=== PATIENT | male | born 1945 | race Caucasian/White ===

== ENCOUNTER 2017-07-19 14:17 | Inpatient (IN) | payer OTHER ==
[2017-07-19 14:21] VITALS: BMI 29.1
[2017-07-19] MEDS ORDERED: PIPERACIL/TAZOB 3.375 GM 3.375 GM/50 ML PREMIX IVPB ONE (17:55)
[2017-07-19] MEDS ORDERED: VANCOMYCIN 1,000 MG in DEXTROSE 5%-WATER - 250 ML IVPB ONE ×2 (17:55→19:30)
[2017-07-19 18:14] LABS: BASO % 0.1 % (0-2.0); EOS % 0.1 % (0-4.5); HEMATOCRIT 42.7 % (35.4-49); HEMOGLOBIN 13.9 GM/dL (11.7-16.9); LYMPH % 6.4 % (8-40); MCH 23.2 pg (25.7-33.7); MCHC 32.5 g/dl (32.0-35.9); MEAN CELL VOLUME 71.3 fl (80-96); MEAN PLT VOLUME 9.2 fl (7.5-11.1); MONO % 3.1 % (3.8-10.2); NEUT % 90.3 % (42.8-82.8); PLATELET COUNT 247 K/MM3 (134-434); RDW 22.9 % (11.9-15.9); WHITE BLOOD COUNT 17.1 K/mm3 (4.0-10.0)
[2017-07-19 18:23] LABS: ADD RBC MORPHOLOGY YES
[2017-07-19 18:25] LABS: INR 1.53 (0.82-1.09); PROTHROMBIN TIME (PATIENT) 17.3 SEC (9.98-11.88)
[2017-07-19 18:40] LABS: ALBUMIN 4.2 g/dl (3.4-5.0); ANION GAP 11 (8-16); BILIRUBIN,TOTAL 0.8 mg/dL (0.2-1.0); BLOOD UREA NITROGEN 22 mg/dL (7-18); CALCIUM 9.3 mg/dL (8.5-10.1); CHLORIDE 95 mmol/L (98-107); CO2 29 mmol/L (21-32); CREATININE 1.1 mg/dL (0.7-1.3); GLUCOSE,RANDOM 132 mg/dL (74-106); POTASSIUM 4.1 mmol/L (3.5-5.1); SGOT/AST 13 U/L (15-37); SGPT/ALT 18 U/L (12-78); SODIUM 135 mmol/L (136-145); TOT PROT 7.9 g/dl (6.4-8.2)
[2017-07-19 18:41] LABS: ALK PHOS 102 U/L (45-117)
[2017-07-19] MEDS ORDERED: VANCOMYCIN 1 GRAM (PRE-DOCKED) 1,000 MG/250 ML BAG IVPB ONE (19:08)
[2017-07-19] MEDS ORDERED: morphine SULFATE 4 MG/ML VIAL ONE (19:16)
--- NOTE | 2017-07-19 19:17 | PDOC ---
History of Present Illness - General Chief Complaint: Wound Stated Complaint: WOUND INFECTION Time Seen by Provider: 07/19/17 17:34 History Source: Patient Exam Limitations: No Limitations - History of Present Illness Initial Comments: 07/19/17 19:12 Patient is 72M with history of DM, CAD s/p CABG here today complaining of erythema to his legs. Patient states that he's been admitted at [facility] previously for infections in his legs that was treated with antibiotics. He states that he's been getting wound care but his legs have been getting worse. He states that he has had increased erythema and pus discharge the past two to three weeks. Patient seems to struggle giving a history. Denies fevers, chills, nausea, vomiting. Denies chest pain, shortness of breath, cough. Past History - Past Medical History Allergies/Adverse Reactions: Allergies Allergy/AdvReac Type Severity Reaction Status Date / Time No Known Allergies Allergy Verified 07/19/17 19:04 Anemia: Yes COPD: No Diabetes: Yes HTN: Yes Hypercholesterolemia: Yes - Suicide/Smoking/Psychosocial Hx Smoking History: Never smoked Review of Systems - Review of Systems Comments:: 07/19/17 19:16 GENERAL/CONSTITUTIONAL: No fever or chills. No weakness. HEAD, EYES, EARS, NOSE AND THROAT: No change in vision. No sore throat. CARDIOVASCULAR: No chest pain or shortness of breath RESPIRATORY: No cough, wheezing, or hemoptysis. GASTROINTESTINAL: No nausea, vomiting, diarrhea or constipation. GENITOURINARY: No dysuria, frequency, or change in urination. MUSCULOSKELETAL: Positive for knee and foot pain SKIN: No rash NEUROLOGIC: No headache, vertigo, loss of consciousness, or change in strength/ sensation. ALLERGIC/IMMUNOLOGIC: No hives or skin allergy. *Physical Exam - Vital Signs Last Vital Signs Temp Pulse Resp BP Pulse Ox 97.9 F 95 H 18 140/76 97 07/19/17 14:18 07/19/17 14:18 07/19/17 14:18 07/19/17 14:18 07/19/17 14:18 - Physical Exam Comments: 07/19/17 19:17 GENERAL: Awake, alert, and fully oriented, in no acute distress R LEx1cm ulcer on plantar aspect of 1st toe, erythema spreading from foot to groin, nontender, 2+ dorsals pedis L LEG: Below the knee amputation with pus discharge around stump, spreading erythema towards groin, nontender HEAD: No signs of trauma, normocephalic, atraumatic EYES: PERRLA, EOMI, sclera anicteric, conjunctiva clear ENT: Auricles normal inspection, hearing grossly normal, nares patent, oropharynx clear without exudates. Moist mucosa NECK: Normal ROM, supple, no lymphadenopathy, JVD, or masses LUNGS: No distress, speaks full sentences, clear to auscultation bilaterally HEART: Regular rate and rhythm, normal S1 and S2, no murmurs, rubs or gallops, peripheral pulses normal and equal bilaterally. ABDOMEN: Soft, nontender, normoactive bowel sounds. No guarding, no rebound. No masses NEUROLOGICAL: Cranial nerves II through XII grossly intact. Normal speech, no focal sensorimotor deficits SKIN: Warm, Dry, normal turgor, no rashes or lesions noted. ED Treatment Course - LABORATORY CBC & Chemistry Diagram: 07/19/17 18:00 07/19/17 18:00 - ADDITIONAL ORDERS Additional order review: Laboratory Results 07/19/17 07/19/17 07/19/17 18:00 18:00 18:00 PT with INR 17.30 H INR 1.53 H Sodium 135 L Potassium 4.1 Chloride 95 L Carbon Dioxide 29 Anion Gap 11 BUN 22 H Creatinine 1.1 Creat Clearance w eGFR > 60 Random Glucose 132 H Lactic Acid 1.6 Calcium 9.3 Total Bilirubin 0.8 AST 13 L ALT 18 Alkaline Phosphatase 102 C-Reactive Protein 1.0 H Total Protein 7.9 Albumin 4.2 07/19/17 18:00 RBC 6.00 H MCV 71.3 L MCHC 32.5 RDW 22.9 H MPV 9.2 Neutrophils % 90.3 H Lymphocytes % 6.4 L Monocytes % 3.1 L Eosinophils % 0.1 Basophils % 0.1 - RADIOLOGY Radiology Studies Ordered: Category Date Time Status CHEST - PA [RAD] Stat Radiology 07/19/17 17:50 Ordered Medical Decision Making - Medical Decision Making 07/19/17 19:20 Patient is 72M here today with cellulitis and diabetic wounds here. Vital signs stable and normal. Concerning physical exam. Differential diagnosis includes, but is not limited to: cellulitis, osteomyelitis, sepsis. Will evaluate with cbc , cmp, lactate, cxr, ekg, blood cultures. 07/19/17 19:23 Laboratory Tests 07/19/17 07/19/17 07/19/17 17:55 18:00 18:00 WBC 17.1 H Hgb 13.9 Hct 42.7 Plt Count 247 ESR 6 INR BUN 22 H Creatinine 1.1 Creat Clearance w eGFR > 60 Lactic Acid C-Reactive Protein 1.0 H Acetone, Qual Negative 07/19/17 07/19/17 18:00 18:00 WBC Hgb Hct Plt Count ESR INR 1.53 H BUN Creatinine Creat Clearance w eGFR Lactic Acid 1.6 C-Reactive Protein Acetone, Qual CBC shows leukocytosis. H/H stable. CMP reassuring. CRP mildly elevated, ESR normal. Lactic acid normal. INR elevated. Will admit to hospitalist for cellulitis. *DC/Admit/Observation/Transfer Diagnosis at time of Disposition: Cellulitis - Discharge Dispostion Condition at time of disposition: Stable Admit: Yes - Referrals Referrals: ON STAFF,NOT [Primary Care Provider] - - Patient Instructions - Post Discharge Activity
[2017-07-19 19:19] LABS: ERYTHROCYTE SEDIMENTATION RATE 6 mm/hr (0-20)
[2017-07-19] MEDS ORDERED: SODIUM CHLORIDE 1,000 ML IV STA (19:22)
--- NOTE | 2017-07-19 19:27 | PDOC ---
Attending Attestation - HPI HPI: 07/19/17 19:31 72 year old male with history significant for DM, CAD s/p CABD, L BKA, sent for several weeks of bilateral lower extremity cellulutis, warmth, pain, and discharged. States he has previously been treated for similar complaints at [facility] with antibiotics. Noticed worsening over past few weeks. No fever or chills. No nausea, vomiting, or diarrhea. No chest pain or shortness of breath. - Physicial Exam PE: 07/19/17 19:33 GENERAL: Awake, alert, and fully oriented, in no acute distress HEAD: No signs of trauma EYES: PERRLA, EOMI, sclera anicteric, conjunctiva clear ENT: Auricles normal inspection, nares patent. Moist mucosa NECK: Normal ROM, supple, no JVD, or masses LUNGS: Breath sounds equal, clear to auscultation bilaterally. No wheezes, and no crackles HEART: Regular rate and rhythm, normal S1 and S2, no murmurs, rubs or gallops ABDOMEN: Soft, nontender, normoactive bowel sounds. No guarding, no rebound. No masses EXTREMITIES: +L BKA with discharge distally, erythema extending up the extremity. RLE with ulcer on first toe, erythema extending up the extremity. Nontender. NEURO: AAOx3, sensation intact throughout. Normal speech, gait deferred. Documentation prepared by Renée Fernando, acting as director medical writing for Aminata Escamilla MD. <Renée Fernando - Last Filed: 07/19/17 21:40> - Resident Resident Name: Andi Flor - ED Attending Attestation I have performed the following: I have examined & evaluated the patient, The case was reviewed & discussed with the resident, I agree w/resident's findings & plan, Exceptions are as noted - Physicial Exam PE: pt admitted for IV ABX 07/19/17 20:52 - Medical Decision Making 07/20/17 01:53 IMP cellulitis in 72 yo male with extensive history of IDDM and PVD,prior amputation. Admit to med/surg <Aminata Escamilla - Last Filed: 07/20/17 01:54>
[2017-07-19] MEDS ORDERED: PIPERACILLIN/TAZOB 3.375 GM 3.375 GM in DEXTROSE 5%-WATER - 50 ML IVPB ONE (19:30)
[2017-07-19] MEDS ORDERED: PIPERACILLIN/TAZOB 3.375 GM 3.375 GM/50 ML BAG IVPB ONE (20:33)
--- NOTE | 2017-07-19 21:07 | HP ---
Admitting History and Physical - Primary Care Physician PCP: Jose Barron - Admission History of Present Illness: 72 year old male with history significant for DM, CAD s/p CABD, L BKA, sent for several weeks of bilateral lower extremity cellulutis, warmth, pain, and discharged. States he has previously been treated for similar complaints at [facility] with antibiotics. Noticed worsening over past few weeks. No fever or chills. No nausea, vomiting, or diarrhea. No chest pain or shortness of breath. - - Past Medical History Cardiovascular: Yes: CAD Endocrine: Yes: Diabetes Mellitus - Past Surgical History Additional Past Surgical History: Lbka - Smoking History Smoking history: Never smoked Home Medications - Allergies Allergies/Adverse Reactions: Allergies Allergy/AdvReac Type Severity Reaction Status Date / Time No Known Allergies Allergy Verified 07/19/17 19:04 - Home Medications Home Medications: Ambulatory Orders Acetaminophen [Pain Relief] 650 mg PO QID PRN 07/19/17 Ammonium Lactate [Skin Treatment] 225 gm TP DAILY 07/19/17 Aspirin 81 mg PO DAILY 07/19/17 Docusate Sodium 300 mg PO HS 07/19/17 Duloxetine HCl [Cymbalta] 30 mg PO DAILY 07/19/17 Ferrous Sulfate 325 mg PO BID 07/19/17 Furosemide [Lasix -] 40 mg PO DAILY 07/19/17 Gabapentin 800 mg PO TID 07/19/17 Hydroxyzine HCl 25 mg PO TID 07/19/17 Insulin (Novolog) [Novolog] 0 units SQ AC 07/19/17 Loperamide HCl [Loperamide] 2 mg PO TID PRN 07/19/17 Melatonin 5 mg PO HS 07/19/17 Midodrine HCl 5 mg PO TID 07/19/17 Multivitamins [Tab-A-Vit -] 1 tab PO DAILY 07/19/17 Oxycodone HCl/Acetaminophen [Oxycodone-Acetaminophen 5-325] 1 each PO TID PRN Simvastatin 80 mg PO HS 07/19/17 Spironolactone 25 mg PO DAILY 07/19/17 Ubidecarenone [Co Q-10] 100 mg PO DAILY 07/19/17 metFORMIN XR [Glucophage *Xr* -] 1,000 mg PO DAILY 07/19/17 Physical Examination Vital Signs: Vital Signs Temperature 97.9 F 07/19/17 14:18 Pulse Rate 95 H 07/19/17 14:18 Respiratory Rate 18 07/19/17 14:18 Blood Pressure 140/76 07/19/17 14:18 O2 Sat by Pulse Oximetry (%) 97 07/19/17 20:00 Constitutional: Yes: No Distress HENT: Yes: Atraumatic Neck: Yes: Supple Cardiovascular: Yes: Regular Rate and Rhythm Respiratory: Yes: CTA Bilaterally Gastrointestinal: Yes: Normal Bowel Sounds Extremities: Yes: Other (L bka cellulitis b/l sandra) Neurological: Yes: Alert, Oriented Labs: CBC, BMP 07/19/17 18:00 07/19/17 18:00 Problem List - Problems (1) Cellulitis Assessment/Plan: iv abx id consult will get vascular consult too Code(s): L03.90 - CELLULITIS, UNSPECIFIED (2) Diabetes Assessment/Plan: insulin, bgm, oral hypoglycemics Code(s): E11.9 - TYPE 2 DIABETES MELLITUS WITHOUT COMPLICATIONS Assessment/Plan Laboratory Tests 07/19/17 07/19/17 07/19/17 17:55 18:00 18:00 WBC 17.1 H RBC 6.00 H Hgb 13.9 Hct 42.7 MCV 71.3 L MCH 23.2 L MCHC 32.5 RDW 22.9 H Plt Count 247 MPV 9.2 Neutrophils % 90.3 H Lymphocytes % 6.4 L Monocytes % 3.1 L Eosinophils % 0.1 Basophils % 0.1 ESR 6 PT with INR INR Sodium 135 L Potassium 4.1 Chloride 95 L Carbon Dioxide 29 Anion Gap 11 BUN 22 H Creatinine 1.1 Creat Clearance w eGFR > 60 Random Glucose 132 H Lactic Acid Calcium 9.3 Total Bilirubin 0.8 AST 13 L ALT 18 Alkaline Phosphatase 102 C-Reactive Protein 1.0 H Total Protein 7.9 Albumin 4.2 Acetone, Qual Negative 07/19/17 07/19/17 18:00 18:00 WBC RBC Hgb Hct MCV MCH MCHC RDW Plt Count MPV Neutrophils % Lymphocytes % Monocytes % Eosinophils % Basophils % ESR PT with INR 17.30 H INR 1.53 H Sodium Potassium Chloride Carbon Dioxide Anion Gap BUN Creatinine Creat Clearance w eGFR Random Glucose Lactic Acid 1.6 Calcium Total Bilirubin AST ALT Alkaline Phosphatase C-Reactive Protein Total Protein Albumin Acetone, Qual Active Medications Generic Name Dose Route Start Last Admin Trade Name Freq PRN Reason Stop Dose Admin Aspirin 81 mg 07/20/17 10:00 Asa - PO DAILY [facility] Atorvastatin Calcium 40 mg 07/19/17 22:00 Lipitor - PO HS [facility] Docusate Sodium 300 mg 07/19/17 22:00 Colace - PO HS [facility] Duloxetine HCl 30 mg 07/20/17 10:00 Cymbalta - PO DAILY [facility] Furosemide 40 mg 07/20/17 10:00 Lasix - PO DAILY [facility] Gabapentin 800 mg 07/19/17 22:00 Neurontin - PO TID [facility] Heparin Sodium (Porcine) 5,000 unit 07/19/17 22:00 Heparin - SQ BID [facility] Metformin HCl 1,000 mg 07/20/17 07:00 Glucophage Xr - PO ACBK [facility] Midodrine 5 mg 07/19/17 22:00 Proamatine - PO TID [facility] Spironolactone 25 mg 07/20/17 10:00 Aldactone - PO DAILY [facility]
[2017-07-19 21:28] LABS: ANISOCYTOSIS 3+; MACROCYTOSIS 1+
[2017-07-19 21:29] LABS: PLATELET ESTIMATE ADEQUATE
[2017-07-19] MEDS ORDERED: MIDODRINE HCL 5 MG TABLET PO SCH (22:00)
[2017-07-20] MEDS: DOCUSATE SODIUM 100 MG CAPSULE (FP) PO SCH ×2 (00:05→21:40)
[2017-07-20] MEDS: ATORVASTATIN CA 40 MG TABLET (FP) PO SCH ×2 (00:05→21:41)
[2017-07-20] MEDS: HEPARIN NA (PORCINE) 5,000 UNITS/ML 1ML VIAL SQ SCH ×3 (00:05→21:42)
[2017-07-20] MEDS: GABAPENTIN 400 MG CAPSULE (FP) PO SCH ×4 (00:05→21:41)
[2017-07-20] MEDS ORDERED: HEPARIN NA (PORCINE) 5,000 UNITS/ML 1ML VIAL ONE (00:08)
[2017-07-20] MEDS ORDERED: DOCUSATE SODIUM 100 MG CAPSULE (FP) PO ONE (00:08)
[2017-07-20] MEDS ORDERED: ATORVASTATIN CA 40 MG TABLET (FP) ONE (00:08)
[2017-07-20] MEDS: INSULIN SLIDING SCALE (NOVOLOG) 1 VIAL SQ SCH ×5 (00:21→21:42)
[2017-07-20] MEDS ORDERED: INSULIN (NOVOLOG) ASPART 100 UNITS/ML 10ML VIAL ONE ×3 (00:29→06:26)
[2017-07-20] MEDS: PIPERACILLIN/TAZOB 3.375 GM 3.375 GM in DEXTROSE 5%-WATER - 50 ML IVPB SCH ×3 (02:06→18:54)
[2017-07-20] MEDS ORDERED: PIPERACILLIN/TAZOB 3.375 GM 3.375 GM/50 ML BAG IVPB ONE (02:08)
[2017-07-20] MEDS ORDERED: metFORMIN HCL 500 MG TABLET (FP) ONE (06:40)
[2017-07-20] MEDS: FUROSEMIDE 40 MG TABLET (FP) PO SCH (10:52)
[2017-07-20] MEDS: ASPIRIN 81 MG CHEWABLE TABLETS PO SCH (10:52)
[2017-07-20] MEDS: SPIRONOLACTONE 25 MG TABLET (FP) PO SCH (10:52)
[2017-07-20] MEDS: DULoxetine HCL 30 MG CAPSULE.DR (FP) PO SCH (10:52)
[2017-07-20] MEDS: MIDODRINE HCL 5 MG TABLET PO SCH ×3 (10:52→17:21)
[2017-07-20] MEDS ORDERED: INSULIN REGULAR HUMAN 100 UNITS/ML *VIAL ONE (11:47)
[2017-07-20] MEDS ORDERED: GABAPENTIN 100 MG CAPSULE (FP) ONE (14:17)
--- NOTE | 2017-07-20 17:01 | EKG ---
Test Reason : Blood Pressure : / mmHG Vent. Rate : 087 BPM Atrial Rate : 087 BPM P-R Int : 222 ms QRS Dur : 116 ms QT Int : 414 ms P-R-T Axes : 061 -28 110 degrees QTc Int : 498 ms SINUS RHYTHM WITH 1ST DEGREE A-V BLOCK INFERIOR INFARCT , AGE UNDETERMINED ANTEROSEPTAL INFARCT , AGE UNDETERMINED T WAVE ABNORMALITY, CONSIDER LATERAL ISCHEMIA ABNORMAL ECG NO PREVIOUS ECGS AVAILABLE Confirmed by MD Marisol, Octavio ([id number]) on 07/20/2017 5:01:38 PM Referred By: Confirmed By:Octavio Damon MD
--- NOTE | 2017-07-20 17:13 | CON.ID ---
Consult Consult Specialty:: infectious diseases Reason for Consultation:: wounds on the lt stum with cellulitis of the leg and redness of the rt leg - History of Present Illness Chief Complaint: pain and scabs on the leg stump History of Present Illness: 72 year old male with history significant for DM, CAD s/p CABD, L BKA, sent for several weeks of bilateral lower extremity cellulutis, warmth, pain, and discharged. States he has previously been treated for similar complaints at [facility] with antibiotics. Noticed worsening over past few weeks. No fever or chills. No nausea, vomiting, or diarrhea. No chest pain or shortness of breath. patient currently stable his brother in room who is giving most of the history as the patient is very hard of hearing - History Source History Provided By: Patient, Family Member Limitations to Obtaining History: Other (hard of hearing) - Past Medical History Cardio/Vascular: Yes: CAD Endocrine: Yes: Diabetes Mellitus - Alcohol/Substance Use Hx Alcohol Use: No - Smoking History Smoking history: Never smoked Home Medications - Allergies Allergies/Adverse Reactions: Allergies Allergy/AdvReac Type Severity Reaction Status Date / Time No Known Allergies Allergy Verified 07/19/17 19:04 - Home Medications Home Medications: Ambulatory Orders Acetaminophen [Pain Relief] 650 mg PO QID PRN 07/19/17 Ammonium Lactate [Skin Treatment] 225 gm TP DAILY 07/19/17 Aspirin 81 mg PO DAILY 07/19/17 Docusate Sodium 300 mg PO HS 07/19/17 Duloxetine HCl [Cymbalta] 30 mg PO DAILY 07/19/17 Ferrous Sulfate 325 mg PO BID 07/19/17 Furosemide [Lasix -] 40 mg PO DAILY 07/19/17 Gabapentin 800 mg PO TID 07/19/17 Hydroxyzine HCl 25 mg PO TID 07/19/17 Insulin (Novolog) [Novolog] 0 units SQ AC 07/19/17 Loperamide HCl [Loperamide] 2 mg PO TID PRN 07/19/17 Melatonin 5 mg PO HS 07/19/17 Midodrine HCl 5 mg PO TID 07/19/17 Multivitamins [Tab-A-Vit -] 1 tab PO DAILY 07/19/17 Oxycodone HCl/Acetaminophen [Oxycodone-Acetaminophen 5-325] 1 each PO TID PRN Simvastatin 80 mg PO HS 07/19/17 Spironolactone 25 mg PO DAILY 07/19/17 Ubidecarenone [Co Q-10] 100 mg PO DAILY 07/19/17 metFORMIN XR [Glucophage *Xr* -] 1,000 mg PO DAILY 07/19/17 Review of Systems - Review of Systems Constitutional: reports: No Symptoms Eyes: reports: No Symptoms HENT: reports: No Symptoms Neck: reports: No Symptoms Cardiovascular: reports: No Symptoms Respiratory: reports: No Symptoms Gastrointestinal: reports: No Symptoms Genitourinary: reports: No Symptoms Musculoskeletal: reports: Other Neurological: reports: Other (pain scabs on the left stump) Endocrine: reports: No Symptoms Hematology/Lymphatic: reports: No Symptoms Psychiatric: reports: No Symptoms Physical Exam Vital Signs: Vital Signs Temperature 97.9 F 07/20/17 15:09 Pulse Rate 92 H 07/20/17 15:09 Respiratory Rate 18 07/20/17 15:09 Blood Pressure 136/88 07/20/17 15:09 O2 Sat by Pulse Oximetry (%) 98 07/20/17 14:31 Constitutional: Yes: No Distress, Calm Eyes: Yes: Conjunctiva Clear Neck: Yes: Supple Cardiovascular: Yes: Regular Rate and Rhythm Respiratory: Yes: Regular, CTA Bilaterally Gastrointestinal: Yes: Normal Bowel Sounds, Soft Musculoskeletal: Yes: WNL Extremities: Yes: Erythema (left stump), Other (scabs on left stump rt leg is cold) Integumentary: Yes: Erythema, Other Wound/Incision: Yes: Clean/Dry Neurological: Yes: Alert, Oriented Psychiatric: Yes: Alert, Oriented Labs: CBC, BMP 07/19/17 18:00 07/19/17 18:00 Imaging - Results Chest X-ray: Report Reviewed Assessment/Plan Problem List - Problems (1) Cellulitis Code(s): L03.90 - CELLULITIS, UNSPECIFIED (2) Diabetes Code(s): E11.9 - TYPE 2 DIABETES MELLITUS (3) Ischemia of foot Code(s): I99.8 - OTHER DISORDER OF CIRCULATORY SYSTEM plan patient needs vascular to see for the rt cold leg left scab and cellulittis we will treat with abx rest continue current mgmt
--- NOTE | 2017-07-20 17:17 | PN ---
Progress Note, Physician History of Present Illness: no complaints - Current Medication List Current Medications: Active Medications Aspirin (Asa -) 81 mg PO DAILY [facility] Last Admin: 07/20/17 10:52 Dose: 81 mg Atorvastatin Calcium (Lipitor -) 40 mg PO HS [facility] Last Admin: 07/20/17 00:05 Dose: 40 mg Docusate Sodium (Colace -) 300 mg PO HS [facility] Last Admin: 07/20/17 00:05 Dose: 300 mg Duloxetine HCl (Cymbalta -) 30 mg PO DAILY [facility] Last Admin: 07/20/17 10:52 Dose: 30 mg Furosemide (Lasix -) 40 mg PO DAILY [facility] Last Admin: 07/20/17 10:52 Dose: 40 mg Gabapentin (Neurontin -) 800 mg PO TID [facility] Last Admin: 07/20/17 14:25 Dose: 800 mg Heparin Sodium (Porcine) (Heparin -) 5,000 unit SQ BID [facility] Last Admin: 07/20/17 10:50 Dose: 5,000 unit Piperacillin Sod/Tazobactam (Sod 3.375 gm/ Dextrose) 50 mls @ 100 mls/hr IVPB Q8H-IV [facility] PRN Reason: Protocol Last Admin: 07/20/17 11:25 Dose: 100 mls/hr Insulin Aspart (Novolog Vial Sliding Scale -) 1 vial SQ ACHS [facility] PRN Reason: Protocol Last Admin: 07/20/17 11:46 Dose: 2 units Metformin HCl (Glucophage Xr -) 1,000 mg PO ACBK [facility] Last Admin: 07/20/17 06:45 Dose: 1,000 mg Midodrine (Proamatine -) 5 mg PO TID-MID [facility] Last Admin: 07/20/17 14:25 Dose: 5 mg Spironolactone (Aldactone -) 25 mg PO DAILY [facility] Last Admin: 07/20/17 10:52 Dose: 25 mg - Objective Vital Signs: Vital Signs Temperature 97.9 F 07/20/17 15:09 Pulse Rate 92 H 07/20/17 15:09 Respiratory Rate 18 07/20/17 15:09 Blood Pressure 136/88 07/20/17 15:09 O2 Sat by Pulse Oximetry (%) 98 07/20/17 14:31 Constitutional: Yes: No Distress HENT: Yes: Atraumatic Neck: Yes: Supple Cardiovascular: Yes: Regular Rate and Rhythm Respiratory: Yes: CTA Bilaterally Extremities: Yes: Other (cellulitis ,R leg still red and somewhat cold left leg stump is red and wam) Neurological: Yes: Alert, Oriented Labs: CBC, BMP 07/19/17 18:00 07/19/17 18:00 INR, PTT INR 1.53 (0.82-1.09) H 07/19/17 18:00 Problem List - Problems (1) Cellulitis Assessment/Plan: iv abx id consult will get vascular consult too Code(s): L03.90 - CELLULITIS, UNSPECIFIED (2) Diabetes Assessment/Plan: insulin, bgm, oral hypoglycemics Code(s): E11.9 - TYPE 2 DIABETES MELLITUS WITHOUT COMPLICATIONS
[2017-07-20] MEDS: oxyCODONE HCL 5 MG TABLET PO PRN (21:41)
[2017-07-21] MEDS: PIPERACILLIN/TAZOB 3.375 GM 3.375 GM in DEXTROSE 5%-WATER - 50 ML IVPB SCH ×3 (01:27→17:55)
[2017-07-21] MEDS: GABAPENTIN 400 MG CAPSULE (FP) PO SCH ×3 (06:11→22:38)
[2017-07-21] MEDS: INSULIN SLIDING SCALE (NOVOLOG) 1 VIAL SQ SCH ×4 (06:12→22:39)
[2017-07-21] MEDS: oxyCODONE HCL 5 MG TABLET PO PRN ×2 (06:12→22:39)
[2017-07-21 07:21] LABS: BASO % 0.2 % (0-2.0); EOS % 0.7 % (0-4.5); HEMOGLOBIN 14.3 GM/dL (11.7-16.9); LYMPH % 5.3 % (8-40); MCH 22.8 pg (25.7-33.7); MCHC 31.7 g/dl (32.0-35.9); MEAN CELL VOLUME 71.9 fl (80-96); MEAN PLT VOLUME 8.7 fl (7.5-11.1); MONO % 4.1 % (3.8-10.2); NEUT % 89.7 % (42.8-82.8); PLATELET COUNT 209 K/MM3 (134-434); RBC 6.26 M/mm3 (4.00-5.60); RDW 22.7 % (11.9-15.9); WHITE BLOOD COUNT 11.4 K/mm3 (4.0-10.0)
[2017-07-21 07:46] LABS: ALBUMIN 3.7 g/dl (3.4-5.0); ALK PHOS 93 U/L (45-117); ANION GAP 7 (8-16); BILIRUBIN,TOTAL 1.1 mg/dL (0.2-1.0); BLOOD UREA NITROGEN 22 mg/dL (7-18); CALCIUM 8.5 mg/dL (8.5-10.1); CHLORIDE 100 mmol/L (98-107); CO2 26 mmol/L (21-32); GLUCOSE,RANDOM 93 mg/dL (74-106); POTASSIUM 4.1 mmol/L (3.5-5.1); SGOT/AST 12 U/L (15-37); SGPT/ALT 12 U/L (12-78); SODIUM 133 mmol/L (136-145)
--- NOTE | 2017-07-21 09:06 | CONSULT ---
Consult - History of Present Illness History of Present Illness: 72 year old man with history of DM, PAD, s/p left BKA at [facility]. He has redness and scabs on stump. Right leg is cold and has several shallow ulcers on calf. He denies pain. He has had vein removed from leg for CABG in the past. He does not know if he has had any vascular procedures on the right leg. - History Source History Provided By: Patient - Past Medical History Cardio/Vascular: Yes: CAD Endocrine: Yes: Diabetes Mellitus - Past Surgical History Past Surgical History: Yes: Amputation - Alcohol/Substance Use Hx Alcohol Use: No - Smoking History Smoking history: Never smoked Home Medications - Allergies Allergies/Adverse Reactions: Allergies Allergy/AdvReac Type Severity Reaction Status Date / Time No Known Allergies Allergy Verified 07/19/17 19:04 - Home Medications Home Medications: Ambulatory Orders Acetaminophen [Pain Relief] 650 mg PO QID PRN 07/19/17 Ammonium Lactate [Skin Treatment] 225 gm TP DAILY 07/19/17 Aspirin 81 mg PO DAILY 07/19/17 Docusate Sodium 300 mg PO HS 07/19/17 Duloxetine HCl [Cymbalta] 30 mg PO DAILY 07/19/17 Ferrous Sulfate 325 mg PO BID 07/19/17 Furosemide [Lasix -] 40 mg PO DAILY 07/19/17 Gabapentin 800 mg PO TID 07/19/17 Hydroxyzine HCl 25 mg PO TID 07/19/17 Insulin (Novolog) [Novolog] 0 units SQ AC 07/19/17 Loperamide HCl [Loperamide] 2 mg PO TID PRN 07/19/17 Melatonin 5 mg PO HS 07/19/17 Midodrine HCl 5 mg PO TID 07/19/17 Multivitamins [Tab-A-Vit -] 1 tab PO DAILY 07/19/17 Oxycodone HCl/Acetaminophen [Oxycodone-Acetaminophen 5-325] 1 each PO TID PRN Simvastatin 80 mg PO HS 07/19/17 Spironolactone 25 mg PO DAILY 07/19/17 Ubidecarenone [Co Q-10] 100 mg PO DAILY 07/19/17 metFORMIN XR [Glucophage *Xr* -] 1,000 mg PO DAILY 07/19/17 Physical Exam Vital Signs: Vital Signs Temperature 97.5 F L 07/21/17 06:00 Pulse Rate 91 H 07/21/17 06:00 Respiratory Rate 18 07/21/17 06:00 Blood Pressure 129/61 07/21/17 06:00 O2 Sat by Pulse Oximetry (%) 95 07/20/17 21:00 Constitutional: Yes: No Distress HENT: Yes: WNL Neck: Yes: Supple Cardiovascular: Yes: Regular Rate and Rhythm Respiratory: Yes: Regular Gastrointestinal: Yes: Soft Extremities: Yes: Amputation (left BKA, diffuse excoriation and erthema end of stump and medial calf and thigh), Cold (right calf and foot) Edema: No Peripheral Pulses WNL: No (none palpable) Labs: CBC, BMP 07/21/17 07:10 07/21/17 07:10 Problem List - Problems (1) Ischemia of foot Assessment/Plan: Right foot cold with obvious ischemia. Will need to evaluate arterial system with CTA and plan revascularization if possible. Left stump skin excoriation will treat with topical steroids and antibiotics. Code(s): I99.8 - OTHER DISORDER OF CIRCULATORY SYSTEM
[2017-07-21] MEDS ORDERED: PT OWN MED DRAWER 7, Y5N ONE ×4 (10:03→17:52)
--- NOTE | 2017-07-21 11:57 | PN ---
Progress Note, Physician History of Present Illness: vascular note noted patient mentions rt leg not bothering him no sensations patient for cta - Current Medication List Current Medications: Active Medications Aspirin (Asa -) 81 mg PO DAILY [facility] Last Admin: 07/20/17 10:52 Dose: 81 mg Atorvastatin Calcium (Lipitor -) 40 mg PO HS [facility] Last Admin: 07/20/17 21:41 Dose: 40 mg Docusate Sodium (Colace -) 300 mg PO HS [facility] Last Admin: 07/20/17 21:40 Dose: 300 mg Duloxetine HCl (Cymbalta -) 30 mg PO DAILY [facility] Last Admin: 07/20/17 10:52 Dose: 30 mg Fluocinonide (Lidex 0.05% Cream -) 1 applic TP BID [facility] Furosemide (Lasix -) 40 mg PO DAILY [facility] Last Admin: 07/20/17 10:52 Dose: 40 mg Gabapentin (Neurontin -) 800 mg PO TID [facility] Last Admin: 07/21/17 06:11 Dose: 800 mg Heparin Sodium (Porcine) (Heparin -) 5,000 unit SQ BID [facility] Last Admin: 07/20/17 21:42 Dose: 5,000 unit Piperacillin Sod/Tazobactam (Sod 3.375 gm/ Dextrose) 50 mls @ 100 mls/hr IVPB Q8H-IV [facility] PRN Reason: Protocol Last Admin: 07/21/17 10:52 Dose: 100 mls/hr Insulin Aspart (Novolog Vial Sliding Scale -) 1 vial SQ ACHS [facility] PRN Reason: Protocol Last Admin: 07/21/17 06:12 Dose: 2 units Metformin HCl (Glucophage Xr -) 1,000 mg PO ACBK [facility] Last Admin: 07/21/17 06:11 Dose: 1,000 mg Midodrine (Proamatine -) 5 mg PO TID-MID [facility] Last Admin: 07/20/17 17:21 Dose: 5 mg Multi-Ingredient Lotion (Eucerin (Large Jar) -) 1 applic TP DAILY [facility] Oxycodone HCl (Roxicodone -) 10 mg PO Q6H PRN PRN Reason: PAIN LEVEL 6-10 Last Admin: 07/21/17 06:12 Dose: 10 mg Spironolactone (Aldactone -) 25 mg PO DAILY [facility] Last Admin: 07/20/17 10:52 Dose: 25 mg - Objective Vital Signs: Vital Signs Temperature 97.5 F L 07/21/17 06:00 Pulse Rate 91 H 07/21/17 06:00 Respiratory Rate 18 07/21/17 06:00 Blood Pressure 129/61 07/21/17 06:00 O2 Sat by Pulse Oximetry (%) 95 07/20/17 21:00 Constitutional: Yes: No Distress, Calm Cardiovascular: Yes: Regular Rate and Rhythm Respiratory: Yes: Regular, CTA Bilaterally Gastrointestinal: Yes: Normal Bowel Sounds, Soft Musculoskeletal: Yes: Other Extremities: Yes: Other (rt leg cold left stump with scabs and redness slightly better) Integumentary: Yes: Erythema (left stump) Wound/Incision: Yes: Other (scabs on the left stump) Neurological: Yes: Alert, Oriented Psychiatric: Yes: Alert, Oriented Labs: CBC, BMP 07/21/17 07:10 07/21/17 07:10 INR, PTT INR 1.53 (0.82-1.09) H 07/19/17 18:00 Assessment/Plan Problem List - Problems (1) Cellulitis Code(s): L03.90 - CELLULITIS, UNSPECIFIED (2) Diabetes Code(s): E11.9 - TYPE 2 DIABETES MELLITUS (3) Ischemia of foot Code(s): I99.8 - OTHER DISORDER OF CIRCULATORY SYSTEM plan continue current mgmt continue abx await for cta vascular to follow scab care
[2017-07-21] MEDS: MINERAL OIL/PETROLAT/WATER TOPICAL CREAM 454 GM JAR TP SCH (13:03)
[2017-07-21] MEDS: HEPARIN NA (PORCINE) 5,000 UNITS/ML 1ML VIAL SQ SCH ×2 (13:04→22:38)
[2017-07-21] MEDS: MIDODRINE HCL 5 MG TABLET PO SCH ×3 (15:25→18:36)
--- NOTE | 2017-07-21 15:41 | PN ---
Progress Note, Physician History of Present Illness: no complaints - Current Medication List Current Medications: Active Medications Aspirin (Asa -) 81 mg PO DAILY [facility] Last Admin: 07/20/17 10:52 Dose: 81 mg Atorvastatin Calcium (Lipitor -) 40 mg PO HS [facility] Last Admin: 07/20/17 21:41 Dose: 40 mg Docusate Sodium (Colace -) 300 mg PO HS [facility] Last Admin: 07/20/17 21:40 Dose: 300 mg Duloxetine HCl (Cymbalta -) 30 mg PO DAILY [facility] Last Admin: 07/20/17 10:52 Dose: 30 mg Fluocinonide (Lidex 0.05% Cream -) 1 applic TP BID [facility] Furosemide (Lasix -) 40 mg PO DAILY [facility] Last Admin: 07/20/17 10:52 Dose: 40 mg Gabapentin (Neurontin -) 800 mg PO TID [facility] Last Admin: 07/21/17 06:11 Dose: 800 mg Heparin Sodium (Porcine) (Heparin -) 5,000 unit SQ BID [facility] Last Admin: 07/21/17 13:04 Dose: 5,000 unit Piperacillin Sod/Tazobactam (Sod 3.375 gm/ Dextrose) 50 mls @ 100 mls/hr IVPB Q8H-IV [facility] PRN Reason: Protocol Last Admin: 07/21/17 10:52 Dose: 100 mls/hr Insulin Aspart (Novolog Vial Sliding Scale -) 1 vial SQ ACHS [facility] PRN Reason: Protocol Last Admin: 07/21/17 13:04 Dose: Not Given Metformin HCl (Glucophage Xr -) 1,000 mg PO ACBK [facility] Last Admin: 07/21/17 06:11 Dose: 1,000 mg Midodrine (Proamatine -) 5 mg PO TID-MID [facility] Last Admin: 07/21/17 15:25 Dose: Not Given Multi-Ingredient Lotion (Eucerin (Large Jar) -) 1 applic TP DAILY [facility] Last Admin: 07/21/17 13:03 Dose: 1 applic Oxycodone HCl (Roxicodone -) 10 mg PO Q6H PRN PRN Reason: PAIN LEVEL 6-10 Last Admin: 07/21/17 06:12 Dose: 10 mg Spironolactone (Aldactone -) 25 mg PO DAILY [facility] Last Admin: 07/20/17 10:52 Dose: 25 mg - Objective Vital Signs: Vital Signs Temperature 97.8 F 07/21/17 14:14 Pulse Rate 92 H 07/21/17 14:14 Respiratory Rate 22 07/21/17 14:14 Blood Pressure 143/78 07/21/17 14:14 O2 Sat by Pulse Oximetry (%) 95 07/20/17 21:00 Constitutional: Yes: No Distress HENT: Yes: Atraumatic Neck: Yes: Supple Cardiovascular: Yes: Regular Rate and Rhythm Respiratory: Yes: CTA Bilaterally Extremities: Yes: Other (R sandra , dusky/cold llex stump red and warm) Edema: Yes Edema: LLE: Trace, RLE: Trace Neurological: Yes: Alert Labs: CBC, BMP 07/21/17 07:10 07/21/17 07:10 INR, PTT INR 1.53 (0.82-1.09) H 07/19/17 18:00 Problem List - Problems (1) Cellulitis Assessment/Plan: iv abx id consult vascular consult Code(s): L03.90 - CELLULITIS, UNSPECIFIED (2) Diabetes Assessment/Plan: insulin, bgm, oral hypoglycemics Code(s): E11.9 - TYPE 2 DIABETES MELLITUS WITHOUT COMPLICATIONS (3) Ischemia of foot Assessment/Plan: reviewed vascular consult Code(s): I99.8 - OTHER DISORDER OF CIRCULATORY SYSTEM
[2017-07-21] MEDS: FLUOCINONIDE 0.05% CREAM (60 GM TUBE) TP SCH ×2 (16:54→22:38)
[2017-07-21] MEDS ORDERED: LORazepam 1 MG TABLET PO ONE (17:51)
[2017-07-21] MEDS: ASPIRIN 81 MG CHEWABLE TABLETS PO SCH (17:56)
[2017-07-21] MEDS: FUROSEMIDE 40 MG TABLET (FP) PO SCH (17:56)
[2017-07-21] MEDS: SPIRONOLACTONE 25 MG TABLET (FP) PO SCH (17:56)
[2017-07-21] MEDS: DULoxetine HCL 30 MG CAPSULE.DR (FP) PO SCH (17:56)
[2017-07-21] MEDS ORDERED: LORazepam 2 MG/ML SDV VIAL IVPUSH ONE (18:15)
[2017-07-21] MEDS ORDERED: LORazepam 2 MG/ML SDV VIAL IM ONE (18:30)
[2017-07-21] MEDS: DOCUSATE SODIUM 100 MG CAPSULE (FP) PO SCH (22:38)
[2017-07-21] MEDS: ATORVASTATIN CA 40 MG TABLET (FP) PO SCH (22:38)
[2017-07-22] MEDS: PIPERACILLIN/TAZOB 3.375 GM 3.375 GM in DEXTROSE 5%-WATER - 50 ML IVPB SCH ×3 (02:03→17:57)
[2017-07-22] MEDS: INSULIN SLIDING SCALE (NOVOLOG) 1 VIAL SQ SCH ×4 (06:19→21:13)
[2017-07-22] MEDS: GABAPENTIN 400 MG CAPSULE (FP) PO SCH ×3 (06:19→21:09)
[2017-07-22] MEDS ORDERED: PT OWN MED DRAWER 7, Y5N ONE ×2 (10:22→17:44)
[2017-07-22] MEDS: MIDODRINE HCL 5 MG TABLET PO SCH ×3 (10:26→17:57)
[2017-07-22] MEDS: ASPIRIN 81 MG CHEWABLE TABLETS PO SCH (10:26)
[2017-07-22] MEDS: HEPARIN NA (PORCINE) 5,000 UNITS/ML 1ML VIAL SQ SCH ×3 (10:26→21:09)
[2017-07-22] MEDS: DULoxetine HCL 30 MG CAPSULE.DR (FP) PO SCH (10:26)
[2017-07-22] MEDS: SPIRONOLACTONE 25 MG TABLET (FP) PO SCH (10:26)
[2017-07-22] MEDS: FUROSEMIDE 40 MG TABLET (FP) PO SCH (10:26)
[2017-07-22] MEDS: FLUOCINONIDE 0.05% CREAM (60 GM TUBE) TP SCH ×2 (10:27→21:14)
[2017-07-22] MEDS: MINERAL OIL/PETROLAT/WATER TOPICAL CREAM 454 GM JAR TP SCH (10:27)
--- NOTE | 2017-07-22 14:46 | PN ---
Progress Note, Physician History of Present Illness: continues to remain stable erythema of the stump better - Current Medication List Current Medications: Active Medications Aspirin (Asa -) 81 mg PO DAILY [facility] Last Admin: 07/22/17 10:26 Dose: 81 mg Atorvastatin Calcium (Lipitor -) 40 mg PO HS [facility] Last Admin: 07/21/17 22:38 Dose: 40 mg Docusate Sodium (Colace -) 300 mg PO HS [facility] Last Admin: 07/21/17 22:38 Dose: 300 mg Duloxetine HCl (Cymbalta -) 30 mg PO DAILY [facility] Last Admin: 07/22/17 10:26 Dose: 30 mg Fluocinonide (Lidex 0.05% Cream -) 1 applic TP BID [facility] Last Admin: 07/22/17 10:27 Dose: 1 applic Furosemide (Lasix -) 40 mg PO DAILY [facility] Last Admin: 07/22/17 10:26 Dose: 40 mg Gabapentin (Neurontin -) 800 mg PO TID [facility] Last Admin: 07/22/17 06:19 Dose: 800 mg Heparin Sodium (Porcine) (Heparin -) 5,000 unit SQ BID [facility] Last Admin: 07/22/17 10:33 Dose: Not Given Piperacillin Sod/Tazobactam (Sod 3.375 gm/ Dextrose) 50 mls @ 100 mls/hr IVPB Q8H-IV [facility] PRN Reason: Protocol Last Admin: 07/22/17 10:27 Dose: 100 mls/hr Insulin Aspart (Novolog Vial Sliding Scale -) 1 vial SQ ACHS [facility] PRN Reason: Protocol Last Admin: 07/22/17 12:40 Dose: 2 units Metformin HCl (Glucophage Xr -) 1,000 mg PO ACBK [facility] Last Admin: 07/22/17 06:19 Dose: 1,000 mg Midodrine (Proamatine -) 5 mg PO TID-MID [facility] Last Admin: 07/22/17 10:26 Dose: 5 mg Multi-Ingredient Lotion (Eucerin (Large Jar) -) 1 applic TP DAILY [facility] Last Admin: 07/22/17 10:27 Dose: 1 applic Oxycodone HCl (Roxicodone -) 10 mg PO Q6H PRN PRN Reason: PAIN LEVEL 6-10 Last Admin: 07/21/17 22:39 Dose: 10 mg Spironolactone (Aldactone -) 25 mg PO DAILY [facility] Last Admin: 07/22/17 10:26 Dose: 25 mg - Objective Vital Signs: Vital Signs Temperature 97.9 F 07/22/17 08:33 Pulse Rate 90 07/22/17 08:33 Respiratory Rate 17 07/22/17 08:33 Blood Pressure 138/78 07/22/17 08:33 O2 Sat by Pulse Oximetry (%) 96 07/21/17 21:00 Constitutional: Yes: No Distress, Calm Cardiovascular: Yes: S1, S2 Respiratory: Yes: Regular, CTA Bilaterally Gastrointestinal: Yes: Normal Bowel Sounds, Soft Musculoskeletal: Yes: WNL Extremities: Yes: Erythema (improving of the stump), Other Wound/Incision: Yes: Other Neurological: Yes: Alert, Oriented Psychiatric: Yes: Alert, Oriented Labs: CBC, BMP 07/21/17 07:10 07/21/17 07:10 INR, PTT INR 1.53 (0.82-1.09) H 07/19/17 18:00 Assessment/Plan Problem List - Problems (1) Cellulitis Code(s): L03.90 - CELLULITIS, UNSPECIFIED (2) Diabetes Code(s): E11.9 - TYPE 2 DIABETES MELLITUS (3) Ischemia of foot Code(s): I99.8 - OTHER DISORDER OF CIRCULATORY SYSTEM plan continue current mgmt continue abx cta results noted vascular to follow scab care
--- NOTE | 2017-07-22 15:22 | PN ---
Progress Note, Physician - Current Medication List Current Medications: Active Medications Aspirin (Asa -) 81 mg PO DAILY [facility] Last Admin: 07/22/17 10:26 Dose: 81 mg Atorvastatin Calcium (Lipitor -) 40 mg PO HS [facility] Last Admin: 07/21/17 22:38 Dose: 40 mg Docusate Sodium (Colace -) 300 mg PO HS [facility] Last Admin: 07/21/17 22:38 Dose: 300 mg Duloxetine HCl (Cymbalta -) 30 mg PO DAILY [facility] Last Admin: 07/22/17 10:26 Dose: 30 mg Fluocinonide (Lidex 0.05% Cream -) 1 applic TP BID [facility] Last Admin: 07/22/17 10:27 Dose: 1 applic Furosemide (Lasix -) 40 mg PO DAILY [facility] Last Admin: 07/22/17 10:26 Dose: 40 mg Gabapentin (Neurontin -) 800 mg PO TID [facility] Last Admin: 07/22/17 14:51 Dose: 800 mg Heparin Sodium (Porcine) (Heparin -) 5,000 unit SQ BID [facility] Last Admin: 07/22/17 10:33 Dose: Not Given Piperacillin Sod/Tazobactam (Sod 3.375 gm/ Dextrose) 50 mls @ 100 mls/hr IVPB Q8H-IV [facility] PRN Reason: Protocol Last Admin: 07/22/17 10:27 Dose: 100 mls/hr Insulin Aspart (Novolog Vial Sliding Scale -) 1 vial SQ ACHS [facility] PRN Reason: Protocol Last Admin: 07/22/17 12:40 Dose: 2 units Metformin HCl (Glucophage Xr -) 1,000 mg PO ACBK [facility] Last Admin: 07/22/17 06:19 Dose: 1,000 mg Midodrine (Proamatine -) 5 mg PO TID-MID [facility] Last Admin: 07/22/17 14:51 Dose: 5 mg Multi-Ingredient Lotion (Eucerin (Large Jar) -) 1 applic TP DAILY [facility] Last Admin: 07/22/17 10:27 Dose: 1 applic Oxycodone HCl (Roxicodone -) 10 mg PO Q6H PRN PRN Reason: PAIN LEVEL 6-10 Last Admin: 07/21/17 22:39 Dose: 10 mg Spironolactone (Aldactone -) 25 mg PO DAILY [facility] Last Admin: 03/29/18 10:26 Dose: 25 mg - Objective Vital Signs: Vital Signs Temperature 97.9 F 07/22/17 08:33 Pulse Rate 90 07/22/17 08:33 Respiratory Rate 17 07/22/17 08:33 Blood Pressure 138/78 07/22/17 08:33 O2 Sat by Pulse Oximetry (%) 96 07/21/17 21:00 Labs: CBC, BMP 07/21/17 07:10 07/21/17 07:10 INR, PTT INR 1.53 (0.82-1.09) H 07/19/17 18:00
[2017-07-22] MEDS: oxyCODONE HCL 5 MG TABLET PO PRN (16:56)
[2017-07-22] MEDS ORDERED: INSULIN (NOVOLOG) ASPART 100 UNITS/ML 10ML VIAL ONE (17:49)
--- NOTE | 2017-07-22 18:21 | PN ---
Progress Note, Physician - Current Medication List Current Medications: Active Medications Aspirin (Asa -) 81 mg PO DAILY [facility] Last Admin: 07/22/17 10:26 Dose: 81 mg Atorvastatin Calcium (Lipitor -) 40 mg PO HS [facility] Last Admin: 07/21/17 22:38 Dose: 40 mg Docusate Sodium (Colace -) 300 mg PO HS [facility] Last Admin: 07/21/17 22:38 Dose: 300 mg Duloxetine HCl (Cymbalta -) 30 mg PO DAILY [facility] Last Admin: 07/22/17 10:26 Dose: 30 mg Fluocinonide (Lidex 0.05% Cream -) 1 applic TP BID [facility] Last Admin: 07/22/17 10:27 Dose: 1 applic Furosemide (Lasix -) 40 mg PO DAILY [facility] Last Admin: 07/22/17 10:26 Dose: 40 mg Gabapentin (Neurontin -) 800 mg PO TID [facility] Last Admin: 07/22/17 14:51 Dose: 800 mg Heparin Sodium (Porcine) (Heparin -) 5,000 unit SQ BID [facility] Last Admin: 07/22/17 10:33 Dose: Not Given Piperacillin Sod/Tazobactam (Sod 3.375 gm/ Dextrose) 50 mls @ 100 mls/hr IVPB Q8H-IV [facility] PRN Reason: Protocol Last Admin: 07/22/17 17:57 Dose: 100 mls/hr Insulin Aspart (Novolog Vial Sliding Scale -) 1 vial SQ ACHS [facility] PRN Reason: Protocol Last Admin: 07/22/17 17:57 Dose: 2 units Metformin HCl (Glucophage Xr -) 1,000 mg PO ACBK [facility] Last Admin: 07/22/17 06:19 Dose: 1,000 mg Midodrine (Proamatine -) 5 mg PO TID-MID [facility] Last Admin: 07/22/17 17:57 Dose: 5 mg Multi-Ingredient Lotion (Eucerin (Large Jar) -) 1 applic TP DAILY [facility] Last Admin: 07/22/17 10:27 Dose: 1 applic Oxycodone HCl (Roxicodone -) 10 mg PO Q6H PRN PRN Reason: PAIN LEVEL 6-10 Last Admin: 07/22/17 16:56 Dose: 10 mg Spironolactone (Aldactone -) 25 mg PO DAILY [facility] Last Admin: 03/29/18 10:26 Dose: 25 mg - Objective Vital Signs: Vital Signs Temperature 98.2 F 07/22/17 14:31 Pulse Rate 90 07/22/17 14:31 Respiratory Rate 20 07/22/17 14:31 Blood Pressure 133/76 07/22/17 14:31 O2 Sat by Pulse Oximetry (%) 96 07/21/17 21:00 HENT: Yes: Atraumatic Neck: Yes: Supple Cardiovascular: Yes: Regular Rate and Rhythm Respiratory: Yes: CTA Bilaterally Gastrointestinal: Yes: Normal Bowel Sounds Extremities: Yes: Other (cellulitis b/l lower ext) Neurological: Yes: Alert, Oriented Labs: CBC, BMP 07/21/17 07:10 07/21/17 07:10 INR, PTT INR 1.53 (0.82-1.09) H 07/19/17 18:00 Problem List - Problems (1) Cellulitis Assessment/Plan: iv abx id consult cta done, report reviewed..need vascular input Code(s): L03.90 - CELLULITIS, UNSPECIFIED (2) Diabetes Assessment/Plan: insulin, bgm, oral hypoglycemics Code(s): E11.9 - TYPE 2 DIABETES MELLITUS WITHOUT COMPLICATIONS (3) Ischemia of foot Assessment/Plan: reviewed vascular consult Code(s): I99.8 - OTHER DISORDER OF CIRCULATORY SYSTEM
--- NOTE | 2017-07-22 18:28 | PN ---
Progress Note (short form) - Note Progress Note: Afebrile Left thigh erythema and superficial excoriations unchaged. 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 AT is open to foot. I discussed findings with patient who states he wants to go back to [facility] for ay vascular interventions. Problem List - Problems (1) Ischemia of foot Code(s): I99.8 - OTHER DISORDER OF CIRCULATORY SYSTEM
[2017-07-22] MEDS: DOCUSATE SODIUM 100 MG CAPSULE (FP) PO SCH (21:09)
[2017-07-22] MEDS: ATORVASTATIN CA 40 MG TABLET (FP) PO SCH (21:09)
[2017-07-23] MEDS: PIPERACILLIN/TAZOB 3.375 GM 3.375 GM in DEXTROSE 5%-WATER - 50 ML IVPB SCH ×3 (01:37→18:38)
[2017-07-23] MEDS: GABAPENTIN 400 MG CAPSULE (FP) PO SCH ×3 (06:24→21:57)
[2017-07-23] MEDS: INSULIN SLIDING SCALE (NOVOLOG) 1 VIAL SQ SCH ×4 (06:24→21:55)
[2017-07-23] MEDS ORDERED: PT OWN MED DRAWER 7, Y5N ONE ×4 (10:51→18:44)
[2017-07-23] MEDS: HEPARIN NA (PORCINE) 5,000 UNITS/ML 1ML VIAL SQ SCH ×2 (10:56→21:57)
[2017-07-23] MEDS: FUROSEMIDE 40 MG TABLET (FP) PO SCH (10:56)
[2017-07-23] MEDS: MINERAL OIL/PETROLAT/WATER TOPICAL CREAM 454 GM JAR TP SCH (10:56)
[2017-07-23] MEDS: FLUOCINONIDE 0.05% CREAM (60 GM TUBE) TP SCH ×2 (10:57→21:58)
[2017-07-23] MEDS: DULoxetine HCL 30 MG CAPSULE.DR (FP) PO SCH (10:57)
[2017-07-23] MEDS: ASPIRIN 81 MG CHEWABLE TABLETS PO SCH (10:57)
[2017-07-23] MEDS: MIDODRINE HCL 5 MG TABLET PO SCH ×3 (10:58→18:38)
[2017-07-23] MEDS: SPIRONOLACTONE 25 MG TABLET (FP) PO SCH (11:16)
[2017-07-23] MEDS: oxyCODONE HCL 5 MG TABLET PO PRN (14:13)
--- NOTE | 2017-07-23 14:28 | PN ---
Progress Note, Physician History of Present Illness: stable vascular note noted patients desire noted no complaints - Current Medication List Current Medications: Active Medications Aspirin (Asa -) 81 mg PO DAILY [facility] Last Admin: 07/23/17 10:57 Dose: 81 mg Atorvastatin Calcium (Lipitor -) 40 mg PO HS [facility] Last Admin: 07/22/17 21:09 Dose: 40 mg Docusate Sodium (Colace -) 300 mg PO HS [facility] Last Admin: 07/22/17 21:09 Dose: 300 mg Duloxetine HCl (Cymbalta -) 30 mg PO DAILY [facility] Last Admin: 07/23/17 10:57 Dose: 30 mg Fluocinonide (Lidex 0.05% Cream -) 1 applic TP BID [facility] Last Admin: 07/23/17 10:57 Dose: 1 applic Furosemide (Lasix -) 40 mg PO DAILY [facility] Last Admin: 07/23/17 10:56 Dose: 40 mg Gabapentin (Neurontin -) 800 mg PO TID [facility] Last Admin: 07/23/17 14:13 Dose: 800 mg Heparin Sodium (Porcine) (Heparin -) 5,000 unit SQ BID [facility] Last Admin: 07/23/17 10:56 Dose: 5,000 unit Piperacillin Sod/Tazobactam (Sod 3.375 gm/ Dextrose) 50 mls @ 100 mls/hr IVPB Q8H-IV [facility] PRN Reason: Protocol Last Admin: 07/23/17 10:57 Dose: 100 mls/hr Insulin Aspart (Novolog Vial Sliding Scale -) 1 vial SQ ACHS [facility] PRN Reason: Protocol Last Admin: 07/23/17 12:12 Dose: 2 units Metformin HCl (Glucophage Xr -) 1,000 mg PO ACBK [facility] Last Admin: 07/23/17 06:33 Dose: 1,000 mg Midodrine (Proamatine -) 5 mg PO TID-MID [facility] Last Admin: 07/23/17 14:13 Dose: 5 mg Multi-Ingredient Lotion (Eucerin (Large Jar) -) 1 applic TP DAILY [facility] Last Admin: 07/23/17 10:56 Dose: 1 applic Oxycodone HCl (Roxicodone -) 10 mg PO Q6H PRN PRN Reason: PAIN LEVEL 6-10 Last Admin: 07/23/17 14:13 Dose: 10 mg Spironolactone (Aldactone -) 25 mg PO DAILY [facility] Last Admin: 07/23/17 11:16 Dose: 25 mg - Objective Vital Signs: Vital Signs Temperature 97.7 F 07/23/17 06:00 Pulse Rate 85 07/23/17 06:00 Respiratory Rate 20 07/23/17 06:00 Blood Pressure 138/77 07/23/17 06:00 O2 Sat by Pulse Oximetry (%) 98 07/22/17 21:00 Constitutional: Yes: No Distress, Calm Cardiovascular: Yes: S1, S2 Respiratory: Yes: Regular, CTA Bilaterally Gastrointestinal: Yes: Normal Bowel Sounds, Soft Musculoskeletal: Yes: WNL Extremities: Yes: Erythema (improved), Other Neurological: Yes: Alert, Oriented Psychiatric: Yes: Alert, Oriented Labs: CBC, BMP 07/21/17 07:10 07/21/17 07:10 INR, PTT INR 1.53 (0.82-1.09) H 07/19/17 18:00 Assessment/Plan Problem List - Problems (1) Cellulitis Code(s): L03.90 - CELLULITIS, UNSPECIFIED (2) Diabetes Code(s): E11.9 - TYPE 2 DIABETES MELLITUS (3) Ischemia of foot Code(s): I99.8 - OTHER DISORDER OF CIRCULATORY SYSTEM plan continue current mgmt continue abx patient needs revascularization seems patient wants to go back to [facility]
--- NOTE | 2017-07-23 15:47 | PN ---
Progress Note, Physician History of Present Illness: no complaints - Current Medication List Current Medications: Active Medications Aspirin (Asa -) 81 mg PO DAILY [facility] Last Admin: 07/23/17 10:57 Dose: 81 mg Atorvastatin Calcium (Lipitor -) 40 mg PO HS [facility] Last Admin: 07/22/17 21:09 Dose: 40 mg Docusate Sodium (Colace -) 300 mg PO HS [facility] Last Admin: 07/22/17 21:09 Dose: 300 mg Duloxetine HCl (Cymbalta -) 30 mg PO DAILY [facility] Last Admin: 07/23/17 10:57 Dose: 30 mg Fluocinonide (Lidex 0.05% Cream -) 1 applic TP BID [facility] Last Admin: 07/23/17 10:57 Dose: 1 applic Furosemide (Lasix -) 40 mg PO DAILY [facility] Last Admin: 07/23/17 10:56 Dose: 40 mg Gabapentin (Neurontin -) 800 mg PO TID [facility] Last Admin: 07/23/17 14:13 Dose: 800 mg Heparin Sodium (Porcine) (Heparin -) 5,000 unit SQ BID [facility] Last Admin: 07/23/17 10:56 Dose: 5,000 unit Piperacillin Sod/Tazobactam (Sod 3.375 gm/ Dextrose) 50 mls @ 100 mls/hr IVPB Q8H-IV [facility] PRN Reason: Protocol Last Admin: 07/23/17 10:57 Dose: 100 mls/hr Insulin Aspart (Novolog Vial Sliding Scale -) 1 vial SQ ACHS [facility] PRN Reason: Protocol Last Admin: 07/23/17 12:12 Dose: 2 units Metformin HCl (Glucophage Xr -) 1,000 mg PO ACBK [facility] Last Admin: 07/23/17 06:33 Dose: 1,000 mg Midodrine (Proamatine -) 5 mg PO TID-MID [facility] Last Admin: 07/23/17 14:13 Dose: 5 mg Multi-Ingredient Lotion (Eucerin (Large Jar) -) 1 applic TP DAILY [facility] Last Admin: 07/23/17 10:56 Dose: 1 applic Oxycodone HCl (Roxicodone -) 10 mg PO Q6H PRN PRN Reason: PAIN LEVEL 6-10 Last Admin: 07/23/17 14:13 Dose: 10 mg Spironolactone (Aldactone -) 25 mg PO DAILY [facility] Last Admin: 07/23/17 11:16 Dose: 25 mg - Objective Vital Signs: Vital Signs Temperature 97.4 F L 07/23/17 15:19 Pulse Rate 84 07/23/17 15:19 Respiratory Rate 20 07/23/17 15:19 Blood Pressure 143/74 07/23/17 15:19 O2 Sat by Pulse Oximetry (%) 98 07/22/17 21:00 Constitutional: Yes: No Distress HENT: Yes: Atraumatic Neck: Yes: Supple Cardiovascular: Yes: Regular Rate and Rhythm Respiratory: Yes: CTA Bilaterally Extremities: Yes: Other (cellulitis b/l sandra) Neurological: Yes: Alert, Oriented Labs: CBC, BMP 07/21/17 07:10 07/21/17 07:10 INR, PTT INR 1.53 (0.82-1.09) H 07/19/17 18:00 Problem List - Problems (1) Cellulitis Assessment/Plan: iv abx id consult Code(s): L03.90 - CELLULITIS, UNSPECIFIED (2) Diabetes Assessment/Plan: insulin, bgm, oral hypoglycemics Code(s): E11.9 - TYPE 2 DIABETES MELLITUS WITHOUT COMPLICATIONS (3) Ischemia of foot Assessment/Plan: reviewed vascular consult and cta report Code(s): I99.8 - OTHER DISORDER OF CIRCULATORY SYSTEM
[2017-07-23] MEDS ORDERED: INSULIN (NOVOLOG) ASPART 100 UNITS/ML 10ML VIAL ONE (18:42)
[2017-07-23 18:58] LABS: BASO % 0.1 % (0-2.0); EOS % 0.9 % (0-4.5); HEMATOCRIT 43.8 % (35.4-49); HEMOGLOBIN 14.5 GM/dL (11.7-16.9); LYMPH % 8.6 % (8-40); MCH 23.5 pg (25.7-33.7); MCHC 33.1 g/dl (32.0-35.9); MEAN CELL VOLUME 70.9 fl (80-96); MEAN PLT VOLUME 9.1 fl (7.5-11.1); MONO % 4.8 % (3.8-10.2); NEUT % 85.6 % (42.8-82.8); PLATELET COUNT 223 K/MM3 (134-434); RBC 6.18 M/mm3 (4.00-5.60); RDW 22.8 % (11.9-15.9); WHITE BLOOD COUNT 11.7 K/mm3 (4.0-10.0)
[2017-07-23 20:27] LABS: ALBUMIN 3.9 g/dl (3.4-5.0); ANION GAP 12 (8-16); BLOOD UREA NITROGEN 25 mg/dL (7-18); CALCIUM 9.1 mg/dL (8.5-10.1); CHLORIDE 98 mmol/L (98-107); CO2 24 mmol/L (21-32); CREATININE 1.1 mg/dL (0.7-1.3); GLUCOSE,RANDOM 117 mg/dL (74-106); POTASSIUM 4.2 mmol/L (3.5-5.1); SGOT/AST 18 U/L (15-37); SODIUM 134 mmol/L (136-145)
[2017-07-23 20:42] LABS: ALK PHOS 96 U/L (45-117); BILIRUBIN,TOTAL 0.8 mg/dL (0.2-1.0); SGPT/ALT 19 U/L (12-78); TOT PROT 7.5 g/dl (6.4-8.2)
[2017-07-23] MEDS: DOCUSATE SODIUM 100 MG CAPSULE (FP) PO SCH (21:57)
[2017-07-23] MEDS: ATORVASTATIN CA 40 MG TABLET (FP) PO SCH (21:57)
[2017-07-24] MEDS: PIPERACILLIN/TAZOB 3.375 GM 3.375 GM in DEXTROSE 5%-WATER - 50 ML IVPB SCH ×3 (01:47→18:00)
[2017-07-24] MEDS: GABAPENTIN 400 MG CAPSULE (FP) PO SCH ×3 (06:14→21:36)
[2017-07-24] MEDS: INSULIN SLIDING SCALE (NOVOLOG) 1 VIAL SQ SCH ×4 (06:16→21:39)
[2017-07-24] MEDS ORDERED: PT OWN MED DRAWER 7, Y5N ONE ×3 (09:36→17:58)
[2017-07-24] MEDS: FUROSEMIDE 40 MG TABLET (FP) PO SCH (09:39)
[2017-07-24] MEDS: ASPIRIN 81 MG CHEWABLE TABLETS PO SCH (09:39)
[2017-07-24] MEDS: DULoxetine HCL 30 MG CAPSULE.DR (FP) PO SCH (09:39)
[2017-07-24] MEDS: HEPARIN NA (PORCINE) 5,000 UNITS/ML 1ML VIAL SQ SCH ×2 (09:39→21:43)
[2017-07-24] MEDS: MIDODRINE HCL 5 MG TABLET PO SCH ×3 (09:39→18:00)
[2017-07-24] MEDS: SPIRONOLACTONE 25 MG TABLET (FP) PO SCH (09:39)
[2017-07-24] MEDS: oxyCODONE HCL 5 MG TABLET PO PRN ×2 (12:43→21:36)
[2017-07-24] MEDS: FLUOCINONIDE 0.05% CREAM (60 GM TUBE) TP SCH ×2 (12:44→21:43)
[2017-07-24] MEDS: MINERAL OIL/PETROLAT/WATER TOPICAL CREAM 454 GM JAR TP SCH (15:13)
--- NOTE | 2017-07-24 16:20 | PN ---
Progress Note, Physician History of Present Illness: Pt seen and examined. Events noted, results reviewed. Pt c/o pain (5/10) in Lt BKA stump. Denies pain in RLE. No other complaints. - Current Medication List Current Medications: Active Medications Aspirin (Asa -) 81 mg PO DAILY [facility] Last Admin: 07/24/17 09:39 Dose: 81 mg Atorvastatin Calcium (Lipitor -) 40 mg PO HS [facility] Last Admin: 07/23/17 21:57 Dose: 40 mg Docusate Sodium (Colace -) 300 mg PO HS [facility] Last Admin: 07/23/17 21:57 Dose: 300 mg Duloxetine HCl (Cymbalta -) 30 mg PO DAILY [facility] Last Admin: 07/24/17 09:39 Dose: 30 mg Fluocinonide (Lidex 0.05% Cream -) 1 applic TP BID [facility] Last Admin: 07/24/17 12:44 Dose: 1 applic Furosemide (Lasix -) 40 mg PO DAILY [facility] Last Admin: 07/24/17 09:39 Dose: 40 mg Gabapentin (Neurontin -) 800 mg PO TID [facility] Last Admin: 07/24/17 15:12 Dose: 800 mg Heparin Sodium (Porcine) (Heparin -) 5,000 unit SQ BID [facility] Last Admin: 07/24/17 09:39 Dose: 5,000 unit Piperacillin Sod/Tazobactam (Sod 3.375 gm/ Dextrose) 50 mls @ 100 mls/hr IVPB Q8H-IV [facility] PRN Reason: Protocol Last Admin: 07/24/17 09:39 Dose: 100 mls/hr Insulin Aspart (Novolog Vial Sliding Scale -) 1 vial SQ ACHS [facility] PRN Reason: Protocol Last Admin: 07/24/17 12:21 Dose: Not Given Metformin HCl (Glucophage Xr -) 1,000 mg PO ACBK [facility] Last Admin: 07/24/17 06:15 Dose: 1,000 mg Midodrine (Proamatine -) 5 mg PO TID-MID [facility] Last Admin: 07/24/17 15:12 Dose: 5 mg Multi-Ingredient Lotion (Eucerin (Large Jar) -) 1 applic TP DAILY [facility] Last Admin: 07/24/17 15:13 Dose: 1 applic Oxycodone HCl (Roxicodone -) 10 mg PO Q6H PRN PRN Reason: PAIN LEVEL 6-10 Last Admin: 07/24/17 12:43 Dose: 10 mg Spironolactone (Aldactone -) 25 mg PO DAILY [facility] Last Admin: 07/24/17 09:39 Dose: 25 mg - Objective Vital Signs: Vital Signs Temperature 97.3 F L 07/24/17 14:38 Pulse Rate 89 07/24/17 14:38 Respiratory Rate 22 07/24/17 14:38 Blood Pressure 132/80 07/24/17 14:38 O2 Sat by Pulse Oximetry (%) 98 07/23/17 21:00 Constitutional: Yes: No Distress Cardiovascular: Yes: Regular Rate and Rhythm Respiratory: Yes: Regular Gastrointestinal: Yes: Normal Bowel Sounds, Soft Extremities: Yes: Amputation (Lt BKA with erythema and excoriations extending up to post thigh, no fluctuance or draining wounds), Cold (RLE erythema/cold, no tenderness) Neurological: Yes: Alert Labs: CBC, BMP 07/23/17 17:40 07/23/17 17:40 INR, PTT INR 1.53 (0.82-1.09) H 07/19/17 18:00 Problem List - Problems (1) Cellulitis Code(s): L03.90 - CELLULITIS, UNSPECIFIED (2) Diabetes Code(s): E11.9 - TYPE 2 DIABETES MELLITUS WITHOUT COMPLICATIONS (3) Ischemia of foot Code(s): I99.8 - OTHER DISORDER OF CIRCULATORY SYSTEM Assessment/Plan 72 y.o. male with DM, PAD, CAD s/p CABG,. s/p Lt BKA admitted with Lt stump/LE erythema/pain, leukocytosis, and RLE cool to touch LLE/stump cellulitis RLE ischemia -- continue antibiotics for now, monitor for improvement in erythema -- revascularization recommended to patient, wishes to go back to [facility] pt currently afebrile, wbc improved
[2017-07-24] MEDS: ATORVASTATIN CA 40 MG TABLET (FP) PO SCH (21:36)
[2017-07-24] MEDS: DOCUSATE SODIUM 100 MG CAPSULE (FP) PO SCH (21:36)
--- NOTE | 2017-07-24 21:48 | PN ---
Progress Note, Physician History of Present Illness: no complaints - Current Medication List Current Medications: Active Medications Aspirin (Asa -) 81 mg PO DAILY [facility] Last Admin: 07/24/17 09:39 Dose: 81 mg Atorvastatin Calcium (Lipitor -) 40 mg PO HS [facility] Last Admin: 07/24/17 21:36 Dose: 40 mg Docusate Sodium (Colace -) 300 mg PO HS [facility] Last Admin: 07/24/17 21:36 Dose: 300 mg Duloxetine HCl (Cymbalta -) 30 mg PO DAILY [facility] Last Admin: 07/24/17 09:39 Dose: 30 mg Fluocinonide (Lidex 0.05% Cream -) 1 applic TP BID [facility] Last Admin: 07/24/17 21:43 Dose: 1 applic Furosemide (Lasix -) 40 mg PO DAILY [facility] Last Admin: 07/24/17 09:39 Dose: 40 mg Gabapentin (Neurontin -) 800 mg PO TID [facility] Last Admin: 07/24/17 21:36 Dose: 800 mg Heparin Sodium (Porcine) (Heparin -) 5,000 unit SQ BID [facility] Last Admin: 07/24/17 21:43 Dose: 5,000 unit Piperacillin Sod/Tazobactam (Sod 3.375 gm/ Dextrose) 50 mls @ 100 mls/hr IVPB Q8H-IV [facility] PRN Reason: Protocol Last Admin: 07/24/17 18:00 Dose: 100 mls/hr Insulin Aspart (Novolog Vial Sliding Scale -) 1 vial SQ ACHS [facility] PRN Reason: Protocol Last Admin: 07/24/17 21:39 Dose: 2 units Metformin HCl (Glucophage Xr -) 1,000 mg PO ACBK [facility] Last Admin: 07/24/17 06:15 Dose: 1,000 mg Midodrine (Proamatine -) 5 mg PO TID-MID [facility] Last Admin: 07/24/17 18:00 Dose: 5 mg Multi-Ingredient Lotion (Eucerin (Large Jar) -) 1 applic TP DAILY [facility] Last Admin: 07/24/17 15:13 Dose: 1 applic Oxycodone HCl (Roxicodone -) 10 mg PO Q6H PRN PRN Reason: PAIN LEVEL 6-10 Last Admin: 07/24/17 21:36 Dose: 10 mg Spironolactone (Aldactone -) 25 mg PO DAILY [facility] Last Admin: 07/24/17 09:39 Dose: 25 mg - Objective Vital Signs: Vital Signs Temperature 97.9 F 07/24/17 19:00 Pulse Rate 80 07/24/17 19:00 Respiratory Rate 20 07/24/17 19:00 Blood Pressure 121/66 07/24/17 19:00 O2 Sat by Pulse Oximetry (%) 98 07/24/17 10:30 Constitutional: Yes: No Distress HENT: Yes: Atraumatic Neck: Yes: Supple Cardiovascular: Yes: Regular Rate and Rhythm Respiratory: Yes: CTA Bilaterally Gastrointestinal: Yes: Normal Bowel Sounds Extremities: Yes: Other (cellulitis b/l sandra../ left bka) Neurological: Yes: Alert, Oriented Labs: CBC, BMP 07/23/17 17:40 07/23/17 17:40 INR, PTT INR 1.53 (0.82-1.09) H 07/19/17 18:00 Problem List - Problems (1) Cellulitis Assessment/Plan: iv abx id consult Code(s): L03.90 - CELLULITIS, UNSPECIFIED (2) Diabetes Assessment/Plan: insulin, bgm, oral hypoglycemics Code(s): E11.9 - TYPE 2 DIABETES MELLITUS WITHOUT COMPLICATIONS (3) Ischemia of foot Assessment/Plan: reviewed vascular consult and cta report Code(s): I99.8 - OTHER DISORDER OF CIRCULATORY SYSTEM
[2017-07-25] MEDS: PIPERACILLIN/TAZOB 3.375 GM 3.375 GM in DEXTROSE 5%-WATER - 50 ML IVPB SCH ×3 (02:45→18:05)
[2017-07-25] MEDS: GABAPENTIN 400 MG CAPSULE (FP) PO SCH ×3 (06:38→21:50)
[2017-07-25] MEDS: INSULIN SLIDING SCALE (NOVOLOG) 1 VIAL SQ SCH ×4 (06:38→21:52)
[2017-07-25 07:49] LABS: ALBUMIN 3.8 g/dl (3.4-5.0); BLOOD UREA NITROGEN 23 mg/dL (7-18); CALCIUM 8.9 mg/dL (8.5-10.1); CHLORIDE 99 mmol/L (98-107); POTASSIUM 4.3 mmol/L (3.5-5.1); SODIUM 132 mmol/L (136-145)
[2017-07-25 07:53] LABS: ALK PHOS 94 U/L (45-117); ANION GAP 10 (8-16); BILIRUBIN,TOTAL 0.7 mg/dL (0.2-1.0); CO2 23 mmol/L (21-32); GLUCOSE,RANDOM 67 mg/dL (74-106); SGOT/AST 21 U/L (15-37); SGPT/ALT 20 U/L (12-78); TOT PROT 7.5 g/dl (6.4-8.2)
[2017-07-25 08:09] LABS: BASO % 0.3 % (0-2.0); EOS % 0.3 % (0-4.5); HEMATOCRIT 49.4 % (35.4-49); HEMOGLOBIN 15.8 GM/dL (11.7-16.9); MEAN CELL VOLUME 71.7 fl (80-96); MONO % 3.8 % (3.8-10.2); NEUT % 87.6 % (42.8-82.8); PLATELET COUNT 221 K/MM3 (134-434); RDW 23.1 % (11.9-15.9); WHITE BLOOD COUNT 13.3 K/mm3 (4.0-10.0)
[2017-07-25 08:18] LABS: ADD RBC MORPHOLOGY YES
[2017-07-25 08:19] LABS: ANISOCYTOSIS 3+
[2017-07-25] MEDS: oxyCODONE HCL 5 MG TABLET PO PRN ×3 (08:52→21:55)
[2017-07-25] MEDS ORDERED: PT OWN MED DRAWER 7, Y5N ONE ×3 (09:49→18:02)
[2017-07-25] MEDS: HEPARIN NA (PORCINE) 5,000 UNITS/ML 1ML VIAL SQ SCH ×2 (09:57→21:50)
[2017-07-25] MEDS: FUROSEMIDE 40 MG TABLET (FP) PO SCH (09:57)
[2017-07-25] MEDS: DULoxetine HCL 30 MG CAPSULE.DR (FP) PO SCH (09:57)
[2017-07-25] MEDS: ASPIRIN 81 MG CHEWABLE TABLETS PO SCH (09:57)
[2017-07-25] MEDS: SPIRONOLACTONE 25 MG TABLET (FP) PO SCH (09:57)
[2017-07-25] MEDS: FLUOCINONIDE 0.05% CREAM (60 GM TUBE) TP SCH ×2 (10:00→21:52)
[2017-07-25] MEDS: MINERAL OIL/PETROLAT/WATER TOPICAL CREAM 454 GM JAR TP SCH (10:01)
[2017-07-25] MEDS: MIDODRINE HCL 5 MG TABLET PO SCH ×3 (10:07→18:04)
[2017-07-25] MEDS ORDERED: INSULIN (NOVOLOG) ASPART 100 UNITS/ML 10ML VIAL ONE (12:11)
--- NOTE | 2017-07-25 12:20 | PN ---
Progress Note, Physician History of Present Illness: no complaints - Current Medication List Current Medications: Active Medications Aspirin (Asa -) 81 mg PO DAILY [facility] Last Admin: 07/25/17 09:57 Dose: 81 mg Atorvastatin Calcium (Lipitor -) 40 mg PO HS [facility] Last Admin: 07/24/17 21:36 Dose: 40 mg Docusate Sodium (Colace -) 300 mg PO HS [facility] Last Admin: 07/24/17 21:36 Dose: 300 mg Duloxetine HCl (Cymbalta -) 30 mg PO DAILY [facility] Last Admin: 07/25/17 09:57 Dose: 30 mg Fluocinonide (Lidex 0.05% Cream -) 1 applic TP BID [facility] Last Admin: 07/25/17 10:00 Dose: 1 applic Furosemide (Lasix -) 40 mg PO DAILY [facility] Last Admin: 07/25/17 09:57 Dose: 40 mg Gabapentin (Neurontin -) 800 mg PO TID [facility] Last Admin: 07/25/17 06:38 Dose: 800 mg Heparin Sodium (Porcine) (Heparin -) 5,000 unit SQ BID [facility] Last Admin: 07/25/17 09:57 Dose: 5,000 unit Piperacillin Sod/Tazobactam (Sod 3.375 gm/ Dextrose) 50 mls @ 100 mls/hr IVPB Q8H-IV [facility] PRN Reason: Protocol Last Admin: 07/25/17 09:59 Dose: 100 mls/hr Insulin Aspart (Novolog Vial Sliding Scale -) 1 vial SQ ACHS [facility] PRN Reason: Protocol Last Admin: 07/25/17 06:38 Dose: Not Given Metformin HCl (Glucophage Xr -) 1,000 mg PO ACBK [facility] Last Admin: 07/25/17 06:38 Dose: 1,000 mg Midodrine (Proamatine -) 5 mg PO TID-MID [facility] Last Admin: 07/25/17 10:07 Dose: 5 mg Multi-Ingredient Lotion (Eucerin (Large Jar) -) 1 applic TP DAILY [facility] Last Admin: 07/25/17 10:01 Dose: 1 applic Oxycodone HCl (Roxicodone -) 10 mg PO Q6H PRN PRN Reason: PAIN LEVEL 6-10 Last Admin: 07/25/17 08:52 Dose: 10 mg Spironolactone (Aldactone -) 25 mg PO DAILY [facility] Last Admin: 07/25/17 09:57 Dose: 25 mg - Objective Vital Signs: Vital Signs Temperature 98.2 F 07/25/17 09:54 Pulse Rate 89 07/25/17 09:54 Respiratory Rate 20 07/25/17 09:54 Blood Pressure 121/68 07/25/17 09:54 O2 Sat by Pulse Oximetry (%) 98 07/24/17 21:00 Constitutional: Yes: No Distress HENT: Yes: Atraumatic Neck: Yes: Supple Cardiovascular: Yes: Regular Rate and Rhythm Respiratory: Yes: CTA Bilaterally Extremities: Yes: Other (cellulitis b/l sandra...improving) Edema: No Peripheral Pulses WNL: No Neurological: Yes: Alert, Oriented Labs: CBC, BMP 07/25/17 06:40 07/25/17 06:40 INR, PTT INR 1.53 (0.82-1.09) H 07/19/17 18:00 Problem List - Problems (1) Cellulitis Assessment/Plan: still on iv abx Code(s): L03.90 - CELLULITIS, UNSPECIFIED (2) Diabetes Assessment/Plan: insulin, bgm, oral hypoglycemics Code(s): E11.9 - TYPE 2 DIABETES MELLITUS WITHOUT COMPLICATIONS (3) Ischemia of foot Assessment/Plan: pt would like to go to [facility] for his left leg please see vascular consult will dc him in am Code(s): I99.8 - OTHER DISORDER OF CIRCULATORY SYSTEM
--- NOTE | 2017-07-25 14:05 | PN ---
Progress Note, Physician History of Present Illness: Pt alert, c/o pain in Lt stump, on oxycodone. Denies pain in RLE. - Current Medication List Current Medications: Active Medications Aspirin (Asa -) 81 mg PO DAILY [facility] Last Admin: 07/25/17 09:57 Dose: 81 mg Atorvastatin Calcium (Lipitor -) 40 mg PO HS [facility] Last Admin: 07/24/17 21:36 Dose: 40 mg Docusate Sodium (Colace -) 300 mg PO HS [facility] Last Admin: 07/24/17 21:36 Dose: 300 mg Duloxetine HCl (Cymbalta -) 30 mg PO DAILY [facility] Last Admin: 07/25/17 09:57 Dose: 30 mg Fluocinonide (Lidex 0.05% Cream -) 1 applic TP BID [facility] Last Admin: 07/25/17 10:00 Dose: 1 applic Furosemide (Lasix -) 40 mg PO DAILY [facility] Last Admin: 07/25/17 09:57 Dose: 40 mg Gabapentin (Neurontin -) 800 mg PO TID [facility] Last Admin: 07/25/17 06:38 Dose: 800 mg Heparin Sodium (Porcine) (Heparin -) 5,000 unit SQ BID [facility] Last Admin: 07/25/17 09:57 Dose: 5,000 unit Piperacillin Sod/Tazobactam (Sod 3.375 gm/ Dextrose) 50 mls @ 100 mls/hr IVPB Q8H-IV [facility] PRN Reason: Protocol Last Admin: 07/25/17 09:59 Dose: 100 mls/hr Insulin Aspart (Novolog Vial Sliding Scale -) 1 vial SQ ACHS [facility] PRN Reason: Protocol Last Admin: 07/25/17 12:22 Dose: 2 units Metformin HCl (Glucophage Xr -) 1,000 mg PO ACBK [facility] Last Admin: 07/25/17 06:38 Dose: 1,000 mg Midodrine (Proamatine -) 5 mg PO TID-MID [facility] Last Admin: 07/25/17 10:07 Dose: 5 mg Multi-Ingredient Lotion (Eucerin (Large Jar) -) 1 applic TP DAILY [facility] Last Admin: 07/25/17 10:01 Dose: 1 applic Oxycodone HCl (Roxicodone -) 10 mg PO Q6H PRN PRN Reason: PAIN LEVEL 6-10 Last Admin: 07/25/17 08:52 Dose: 10 mg Spironolactone (Aldactone -) 25 mg PO DAILY [facility] Last Admin: 07/25/17 09:57 Dose: 25 mg - Objective Vital Signs: Vital Signs Temperature 98.2 F 07/25/17 09:54 Pulse Rate 89 07/25/17 09:54 Respiratory Rate 20 07/25/17 09:54 Blood Pressure 121/68 07/25/17 09:54 O2 Sat by Pulse Oximetry (%) 98 07/24/17 21:00 Constitutional: Yes: No Distress Cardiovascular: Yes: Regular Rate and Rhythm Respiratory: Yes: Regular Gastrointestinal: Yes: Normal Bowel Sounds, Soft Extremities: Yes: Amputation (LT BKA stump - erythema, excoriations dry, mild warmth, no induration/fluctuance RLE cool) Edema: No Neurological: Yes: Alert, Oriented Labs: CBC, BMP 07/25/17 06:40 07/25/17 06:40 INR, PTT INR 1.53 (0.82-1.09) H 07/19/17 18:00 Problem List - Problems (1) Cellulitis Code(s): L03.90 - CELLULITIS, UNSPECIFIED (2) Diabetes Code(s): E11.9 - TYPE 2 DIABETES MELLITUS WITHOUT COMPLICATIONS (3) Ischemia of foot Code(s): I99.8 - OTHER DISORDER OF CIRCULATORY SYSTEM Assessment/Plan 72 y.o. male with DM, PAD, CAD s/p CABG,. s/p Lt BKA admitted with Lt stump/LE erythema/pain, leukocytosis, and RLE cool to touch LLE/stump cellulitis - slightly improved RLE ischemia Leukocytosis - wbc fluctuating, elevated from yesterday -- continue Zosyn for now, f/u wbc tomorrow. If continue to increase will consider add broader coverage. -- Vascular following, revascularization recommended to patient -- pain control continue monitor
[2017-07-25] MEDS: ATORVASTATIN CA 40 MG TABLET (FP) PO SCH (21:50)
[2017-07-25] MEDS: DOCUSATE SODIUM 100 MG CAPSULE (FP) PO SCH (21:50)
[2017-07-26] MEDS: PIPERACILLIN/TAZOB 3.375 GM 3.375 GM in DEXTROSE 5%-WATER - 50 ML IVPB SCH ×3 (02:08→17:46)
[2017-07-26] MEDS: GABAPENTIN 400 MG CAPSULE (FP) PO SCH ×3 (06:44→21:12)
[2017-07-26] MEDS: INSULIN SLIDING SCALE (NOVOLOG) 1 VIAL SQ SCH ×4 (06:45→21:16)
[2017-07-26 07:29] LABS: BASO % 0.9 % (0-2.0); EOS % 1.5 % (0-4.5); HEMATOCRIT 46.1 % (35.4-49); MCH 23.2 pg (25.7-33.7); MCHC 32.6 g/dl (32.0-35.9); MEAN CELL VOLUME 71.4 fl (80-96); MEAN PLT VOLUME 8.8 fl (7.5-11.1); MONO % 4.9 % (3.8-10.2); NEUT % 78.7 % (42.8-82.8); PLATELET COUNT 215 K/MM3 (134-434); RBC 6.46 M/mm3 (4.00-5.60); RDW 22.7 % (11.9-15.9); WHITE BLOOD COUNT 10.3 K/mm3 (4.0-10.0)
[2017-07-26] MEDS ORDERED: PT OWN MED DRAWER 7, Y5N ONE (10:55)
[2017-07-26] MEDS: ASPIRIN 81 MG CHEWABLE TABLETS PO SCH (10:57)
[2017-07-26] MEDS: MIDODRINE HCL 5 MG TABLET PO SCH ×3 (10:57→17:48)
[2017-07-26] MEDS: oxyCODONE HCL 5 MG TABLET PO PRN (10:57)
[2017-07-26] MEDS: DULoxetine HCL 30 MG CAPSULE.DR (FP) PO SCH (10:57)
[2017-07-26] MEDS: FUROSEMIDE 40 MG TABLET (FP) PO SCH (10:57)
[2017-07-26] MEDS: FLUOCINONIDE 0.05% CREAM (60 GM TUBE) TP SCH ×2 (10:58→21:13)
[2017-07-26] MEDS: HEPARIN NA (PORCINE) 5,000 UNITS/ML 1ML VIAL SQ SCH (10:58)
[2017-07-26] MEDS: SPIRONOLACTONE 25 MG TABLET (FP) PO SCH (10:58)
[2017-07-26] MEDS: MINERAL OIL/PETROLAT/WATER TOPICAL CREAM 454 GM JAR TP SCH (10:59)
--- NOTE | 2017-07-26 14:56 | PN ---
Progress Note, Physician History of Present Illness: stable no issues left leg stump looks good rt leg plan awaited - Current Medication List Current Medications: Active Medications Aspirin (Asa -) 81 mg PO DAILY [facility] Last Admin: 07/26/17 10:57 Dose: 81 mg Atorvastatin Calcium (Lipitor -) 40 mg PO HS [facility] Last Admin: 07/25/17 21:50 Dose: 40 mg Docusate Sodium (Colace -) 300 mg PO HS [facility] Last Admin: 07/25/17 21:50 Dose: 300 mg Duloxetine HCl (Cymbalta -) 30 mg PO DAILY [facility] Last Admin: 07/26/17 10:57 Dose: 30 mg Fluocinonide (Lidex 0.05% Cream -) 1 applic TP BID [facility] Last Admin: 07/26/17 10:58 Dose: 1 applic Furosemide (Lasix -) 40 mg PO DAILY [facility] Last Admin: 07/26/17 10:57 Dose: 40 mg Gabapentin (Neurontin -) 800 mg PO TID [facility] Last Admin: 07/26/17 06:44 Dose: 800 mg Heparin Sodium (Porcine) (Heparin -) 5,000 unit SQ BID [facility] Last Admin: 07/26/17 10:58 Dose: 5,000 unit Piperacillin Sod/Tazobactam (Sod 3.375 gm/ Dextrose) 50 mls @ 100 mls/hr IVPB Q8H-IV [facility] PRN Reason: Protocol Last Admin: 07/26/17 10:58 Dose: 100 mls/hr Insulin Aspart (Novolog Vial Sliding Scale -) 1 vial SQ ACHS [facility] PRN Reason: Protocol Last Admin: 07/26/17 11:30 Dose: 2 units Metformin HCl (Glucophage Xr -) 1,000 mg PO ACBK [facility] Last Admin: 07/26/17 06:44 Dose: 1,000 mg Midodrine (Proamatine -) 5 mg PO TID-MID [facility] Last Admin: 07/26/17 10:57 Dose: 5 mg Multi-Ingredient Lotion (Eucerin (Large Jar) -) 1 applic TP DAILY [facility] Last Admin: 07/26/17 10:59 Dose: 1 applic Oxycodone HCl (Roxicodone -) 10 mg PO Q6H PRN PRN Reason: PAIN LEVEL 6-10 Last Admin: 07/26/17 10:57 Dose: 10 mg Spironolactone (Aldactone -) 25 mg PO DAILY [facility] Last Admin: 07/26/17 10:58 Dose: 25 mg - Objective Vital Signs: Vital Signs Temperature 97.9 F 07/26/17 11:02 Pulse Rate 99 H 07/26/17 11:02 Respiratory Rate 20 07/26/17 11:02 Blood Pressure 115/69 07/26/17 11:02 O2 Sat by Pulse Oximetry (%) 99 07/26/17 09:00 Constitutional: Yes: No Distress, Calm Cardiovascular: Yes: Regular Rate and Rhythm Respiratory: Yes: Regular, CTA Bilaterally Gastrointestinal: Yes: Normal Bowel Sounds, Soft Musculoskeletal: Yes: Other Extremities: Yes: Other (left stump cellulitits improving rt leg cold) Wound/Incision: Yes: Clean/Dry Neurological: Yes: Alert, Oriented Psychiatric: Yes: Alert Labs: CBC, BMP 07/26/17 07:10 07/25/17 06:40 INR, PTT INR 1.53 (0.82-1.09) H 07/19/17 18:00 Assessment/Plan Problem List - Problems (1) Cellulitis Code(s): L03.90 - CELLULITIS, UNSPECIFIED (2) Diabetes Code(s): E11.9 - TYPE 2 DIABETES MELLITUS (3) Ischemia of foot Code(s): I99.8 - OTHER DISORDER OF CIRCULATORY SYSTEM plan continue current mgmt continue abx patient needs revascularization patient wants to go to [place] final plan awaited
--- NOTE | 2017-07-26 20:41 | PN ---
Progress Note, Physician History of Present Illness: no complaints - Current Medication List Current Medications: Active Medications Aspirin (Asa -) 81 mg PO DAILY [facility] Last Admin: 07/26/17 10:57 Dose: 81 mg Atorvastatin Calcium (Lipitor -) 40 mg PO HS [facility] Last Admin: 07/25/17 21:50 Dose: 40 mg Docusate Sodium (Colace -) 300 mg PO HS [facility] Last Admin: 07/25/17 21:50 Dose: 300 mg Duloxetine HCl (Cymbalta -) 30 mg PO DAILY [facility] Last Admin: 07/26/17 10:57 Dose: 30 mg Fluocinonide (Lidex 0.05% Cream -) 1 applic TP BID [facility] Last Admin: 07/26/17 10:58 Dose: 1 applic Furosemide (Lasix -) 40 mg PO DAILY [facility] Last Admin: 07/26/17 10:57 Dose: 40 mg Gabapentin (Neurontin -) 800 mg PO TID [facility] Last Admin: 07/26/17 15:11 Dose: 800 mg Heparin Sodium (Porcine) (Heparin -) 5,000 unit SQ BID [facility] Last Admin: 07/26/17 10:58 Dose: 5,000 unit Piperacillin Sod/Tazobactam (Sod 3.375 gm/ Dextrose) 50 mls @ 100 mls/hr IVPB Q8H-IV [facility] PRN Reason: Protocol Last Admin: 07/26/17 17:46 Dose: 100 mls/hr Insulin Aspart (Novolog Vial Sliding Scale -) 1 vial SQ ACHS [facility] PRN Reason: Protocol Last Admin: 07/26/17 17:47 Dose: 2 units Metformin HCl (Glucophage Xr -) 1,000 mg PO ACBK [facility] Last Admin: 07/26/17 06:44 Dose: 1,000 mg Midodrine (Proamatine -) 5 mg PO TID-MID [facility] Last Admin: 07/26/17 17:48 Dose: 5 mg Multi-Ingredient Lotion (Eucerin (Large Jar) -) 1 applic TP DAILY [facility] Last Admin: 07/26/17 10:59 Dose: 1 applic Spironolactone (Aldactone -) 25 mg PO DAILY [facility] Last Admin: 07/26/17 10:58 Dose: 25 mg - Objective Vital Signs: Vital Signs Temperature 97.6 F 07/26/17 18:00 Pulse Rate 84 07/26/17 18:00 Respiratory Rate 18 07/26/17 18:00 Blood Pressure 130/66 07/26/17 18:00 O2 Sat by Pulse Oximetry (%) 99 07/26/17 09:00 Constitutional: Yes: No Distress HENT: Yes: Atraumatic Neck: Yes: Supple Cardiovascular: Yes: Regular Rate and Rhythm Respiratory: Yes: CTA Bilaterally Gastrointestinal: Yes: Normal Bowel Sounds Extremities: Yes: Other (cellulitis b/l sandra) Edema: No Peripheral Pulses WNL: No Neurological: Yes: Alert, Oriented Labs: CBC, BMP 07/26/17 07:10 07/25/17 06:40 INR, PTT INR 1.53 (0.82-1.09) H 07/19/17 18:00 Problem List - Problems (1) Cellulitis Assessment/Plan: will switch to oral augmentin bid for 5 days d/w id Code(s): L03.90 - CELLULITIS, UNSPECIFIED (2) Diabetes Assessment/Plan: insulin, bgm, oral hypoglycemics Code(s): E11.9 - TYPE 2 DIABETES MELLITUS WITHOUT COMPLICATIONS (3) Ischemia of foot Assessment/Plan: pt would like to go to [facility] for his left leg please see vascular consult will dc him in am Code(s): I99.8 - OTHER DISORDER OF CIRCULATORY SYSTEM
[2017-07-26] MEDS: ATORVASTATIN CA 40 MG TABLET (FP) PO SCH (21:12)
[2017-07-26] MEDS: DOCUSATE SODIUM 100 MG CAPSULE (FP) PO SCH (21:12)
[2017-07-27] MEDS: INSULIN SLIDING SCALE (NOVOLOG) 1 VIAL SQ SCH ×3 (06:36→17:39)
[2017-07-27] MEDS: GABAPENTIN 400 MG CAPSULE (FP) PO SCH ×2 (06:38→14:13)
[2017-07-27] MEDS: AMOX TR/POT CLAV 875MG/125MG TABLETS (FP) PO SCH ×2 (08:12→17:08)
[2017-07-27] MEDS: SPIRONOLACTONE 25 MG TABLET (FP) PO SCH (10:01)
[2017-07-27] MEDS: MIDODRINE HCL 5 MG TABLET PO SCH ×2 (10:01→14:13)
[2017-07-27] MEDS: DULoxetine HCL 30 MG CAPSULE.DR (FP) PO SCH (10:01)
[2017-07-27] MEDS: ASPIRIN 81 MG CHEWABLE TABLETS PO SCH (10:02)
[2017-07-27] MEDS: MINERAL OIL/PETROLAT/WATER TOPICAL CREAM 454 GM JAR TP SCH (10:02)
[2017-07-27] MEDS: FUROSEMIDE 40 MG TABLET (FP) PO SCH (10:02)
[2017-07-27] MEDS: FLUOCINONIDE 0.05% CREAM (60 GM TUBE) TP SCH (10:03)
--- NOTE | 2017-07-27 10:23 | PN ---
Progress Note, Physician History of Present Illness: patient doing well cellulitis on the left stump much better hard of hearing - Current Medication List Current Medications: Active Medications Amoxicillin/Clavulanate Potassium (Augmentin - 875mg Tablet) 1 tab PO BID@0800, 1730 [facility] Last Admin: 07/27/17 08:12 Dose: 1 tab Aspirin (Asa -) 81 mg PO DAILY [facility] Last Admin: 07/27/17 10:02 Dose: 81 mg Atorvastatin Calcium (Lipitor -) 40 mg PO HS [facility] Last Admin: 07/26/17 21:12 Dose: 40 mg Docusate Sodium (Colace -) 300 mg PO HS [facility] Last Admin: 07/26/17 21:12 Dose: 300 mg Duloxetine HCl (Cymbalta -) 30 mg PO DAILY [facility] Last Admin: 07/27/17 10:01 Dose: 30 mg Fluocinonide (Lidex 0.05% Cream -) 1 applic TP BID [facility] Last Admin: 07/27/17 10:03 Dose: 1 applic Furosemide (Lasix -) 40 mg PO DAILY [facility] Last Admin: 07/27/17 10:02 Dose: 40 mg Gabapentin (Neurontin -) 800 mg PO TID [facility] Last Admin: 07/27/17 06:38 Dose: 800 mg Insulin Aspart (Novolog Vial Sliding Scale -) 1 vial SQ ACHS [facility] PRN Reason: Protocol Last Admin: 07/27/17 06:36 Dose: Not Given Metformin HCl (Glucophage Xr -) 1,000 mg PO ACBK [facility] Last Admin: 07/27/17 06:38 Dose: 1,000 mg Midodrine (Proamatine -) 5 mg PO TID-MID [facility] Last Admin: 07/27/17 10:01 Dose: 5 mg Multi-Ingredient Lotion (Eucerin (Large Jar) -) 1 applic TP DAILY [facility] Last Admin: 07/27/17 10:02 Dose: 1 applic Spironolactone (Aldactone -) 25 mg PO DAILY [facility] Last Admin: 07/27/17 10:01 Dose: 25 mg - Objective Vital Signs: Vital Signs Temperature 97.7 F 07/27/17 10:00 Pulse Rate 87 07/27/17 10:00 Respiratory Rate 17 07/27/17 10:00 Blood Pressure 134/75 07/27/17 10:00 O2 Sat by Pulse Oximetry (%) 95 07/27/17 09:00 Constitutional: Yes: No Distress, Calm Cardiovascular: Yes: Regular Rate and Rhythm Respiratory: Yes: Regular, CTA Bilaterally Gastrointestinal: Yes: Normal Bowel Sounds, Soft Musculoskeletal: Yes: WNL Extremities: Yes: Other (rt leg cold left leg stump cellulitits resolved scabs present) Wound/Incision: Yes: Clean/Dry Neurological: Yes: Alert, Oriented Psychiatric: Yes: Alert, Oriented Labs: CBC, BMP 07/26/17 07:10 07/25/17 06:40 INR, PTT INR 1.53 (0.82-1.09) H 07/19/17 18:00
[2017-07-27 15:07] VITALS: BP 129/63; PULSE 84; TEMP 98.8
--- NOTE | 2017-07-27 17:13 | DS ---
Physical Examination Vital Signs: Vital Signs Temperature 98.8 F 07/27/17 15:04 Pulse Rate 84 07/27/17 15:04 Respiratory Rate 18 07/27/17 15:04 Blood Pressure 129/63 07/27/17 15:04 O2 Sat by Pulse Oximetry (%) 95 07/27/17 09:00 Labs: CBC, BMP 07/26/17 07:10 07/25/17 06:40 Discharge Summary Reason For Visit: CELLULITIS Current Active Problems Cellulitis (Acute) Diabetes (Acute) Ischemia of foot (Acute) Condition: Stable - Instructions Diet, Activity, Other Instructions: pt wants to see his group of doctors at [facility] for further treatment...see your doctors this week Referrals: ON STAFF,NOT [Primary Care Provider] - - Home Medications Comprehensive Discharge Medication List: Ambulatory Orders Acetaminophen [Pain Relief] 650 mg PO QID PRN 07/19/17 Ammonium Lactate [Skin Treatment] 225 gm TP DAILY 07/19/17 Aspirin 81 mg PO DAILY 07/19/17 Docusate Sodium 300 mg PO HS 07/19/17 Duloxetine HCl [Cymbalta] 30 mg PO DAILY 07/19/17 Ferrous Sulfate 325 mg PO BID 07/19/17 Furosemide [Lasix -] 40 mg PO DAILY 07/19/17 Gabapentin 800 mg PO TID 07/19/17 Hydroxyzine HCl 25 mg PO TID 07/19/17 Insulin (Novolog) [Novolog] 0 units SQ AC 07/19/17 Loperamide HCl [Loperamide] 2 mg PO TID PRN 07/19/17 Melatonin 5 mg PO HS 07/19/17 Midodrine HCl 5 mg PO TID 07/19/17 Multivitamins [Tab-A-Vit -] 1 tab PO DAILY 07/19/17 Oxycodone HCl/Acetaminophen [Oxycodone-Acetaminophen 5-325] 1 each PO TID PRN Simvastatin 80 mg PO HS 07/19/17 Spironolactone 25 mg PO DAILY 07/19/17 Ubidecarenone [Co Q-10] 100 mg PO DAILY 07/19/17 metFORMIN XR [Glucophage *Xr* -] 1,000 mg PO DAILY 07/19/17 Amox-Tr/K Cl [Augmentin 875-125mg Tablet -] 1 tab PO BID@0800,1730 #10 tablet
[2017-07-27] MEDS ORDERED: oxyCODONE HCL 5 MG TABLET PO PRN (17:20)
== END 2017-07-27 17:52 | disposition home or self-care (01) | DRG 300 ==
LOC: JER 14:17 → JERBED 20:03 → J5S 07-20 14:30
PROVIDERS: ADMIT Internal Medicine; ATTEND Internal Medicine
DX: E11.51 Type 2 diabetes mellitus with diabetic peripheral angiopathy without gangrene (principal); L03.115 Cellulitis of right lower limb; L03.116 Cellulitis of left lower limb; I25.10 Atherosclerotic heart disease of native coronary artery without angina pectoris; Z95.1 Presence of aortocoronary bypass graft; D72.829 Elevated white blood cell count, unspecified; I77.1 Stricture of artery; I99.8 Other disorder of circulatory system
CPT/HCPCS: 36415; 71045-TC-FY; 75635-TC; 80053; 82009; 82962; 83605; 85025; 85610; 85651; 86140; 87040; 93005; 93010; 99285-25; J1644; J7030